=== PATIENT | male | born 1960 | race Caucasian/White ===

== ENCOUNTER → 2020-10-26 | Outpatient (CLI) | payer OTHER ==
[2020-10-26 10:26] LABS: CREATININE 0.6 mg/dL (0.7-1.3)
== END ==
LOC: CAT 09:22
PROVIDERS: ATTEND Family Medicine
DX: I70.8 Atherosclerosis of other arteries (principal); R63.4 Abnormal weight loss

== ENCOUNTER 2020-10-30 09:47 | Inpatient (IN) | payer BC, OTHER ==
[~2020-10-30] VITALS: Ht 175.3 cm; Wt 52.1 kg
--- NOTE | ~2020-10-30 | PFR/MVV ---
[facility] [place] [address] [place] [address] PULMONARY FUNCTION MVV/REPORT Name: THU HAWKINS Room #: 208-P [facility]#: [id number] Admission: 10/30/20 Attend Phys: Tai Martin MD Discharge: 11/09/20 Date of : 60 Report #: [id number] THIS REPORT FOR: //name// >> SPIROMETRY: (BTPS) Height: in cm Weight: lbs kg Exam Date: PRE-RX POST-RX PRED BEST %PRED BEST %PRED %CHG FVC LITERS . . . . . . FEV1 LITERS . . . . . . FEV1/FVC % . . . . . . HBV61-60% L/Sec . . . . . . PEF L/SEC . . . . . . FEF50/FIF50 UNITLESS . . . . . . MVV L/Min . . . f 1/Min . . . >> LUNG VOLUMES: (BTPS) PRE-RX POST-RX PRED AVG %PRED AVG %PRED %CHG VC Liters . . . . . . TLC Liters . . . . . . RV Liters . . . . . . RV/TLC % . . . . . . FRC PL Liters . . . . . . FRC N2 Liters . . . . . . ERV Liters . . . . . . IC Liters . . . . . . >> DIFFUSION: DLCO ml/Min/mmHg . . . . . . DL Zeinab ml/Min/mmHg . . . . . . DLCO/VA ml/Min/mmHg . . . . . . VA Liters . . . . . . COMMENTS: COMMENTS: >> RESISTANCE: [facility] [address] [place] [address] PULMONARY FUNCTION MVV/REPORT Name: THU HAWKINS Room #: 208-P [facility] IN ..#: [id number] Admission: 10/30/20 Attend Phys: Tai Maritn MD Discharge: 11/09/20 Date of : 60 Report #: [id number] PRE-RX PRED AVG %PRED Raw Total cmH20/L/Sec . . . Raw Insp cmH20/L/Sec . . . Raw Exp cmH20/L/Sec . . . Raw cmH20/L/Sec . . . Gaw L/Sec/cmH20 . . . sRaw cmH20 Sec . . . sGaw l/cmH20 Sec . . . Vtq Liters . . . # = OUTSIDE 95% CONFIDENCE INTERVAL CALIBRATION: PRED: 3.00 ACTUAL: EXP 3.01 INSP 3.02 [facility]-OL10- [facility]-05 N-1804-4 >> INTERPRETATION/IMPRESSION: There is no significant response to bronchodilator therapy. IMPRESSION: Spirometry is suggestive of a moderate severe obstructive airflow defect with no significant response to bronchodilator therapy. By: Tho Pradhan MD /nt
[~2020-10-30 09:47] MED LIST: NICORETTE2 MG BC; TRESIBA FL100 UNIT/1 SUBQ; TYLENOL EXTRA500 MG PO
[2020-10-30 12:01] VITALS: BP 97/45
[2020-10-30 15:31] VITALS: BP 111/64
--- NOTE | 2020-10-30 17:42 | NUR ---
PT ADMITED FROM [facility]. ADMISSION HX AND ASSESSMENT COMPLETED. PT ALERT AND ORIENTED. PRN PAIN MED GIVEN WITH PARTIAL RELIEF. NEW ORDERS NOTED. CHEST TUBE PATENT AND INTACT. NO RESPIRATORY DISTRESS NOTED.
[2020-10-30 20:00] VITALS: BP 114/58
[2020-10-30 23:35] VITALS: BP 111/43
[2020-10-31 03:08] VITALS: BP 107/46
--- NOTE | 2020-10-31 06:09 | NUR ---
ASSUMED CARE OF PT AT 1900, PT ON RA WITH RIGHT CHEST TUBE IN PLACE, HOOKED TO LIS. PT C/O PAIN 12/08 AND WAS GIVEN PAIN MEDICATION ORDERED. PT WAS INSTRUCTED ON THE US OF THE INSENTIVE SPIROMETER AND ACHIEVED 500CC X 10 BREATHES INITIALLY. PT EDUCATED ON THE IMPORTANCE OF OF I.S. USE AND DBC TO PREVENT PNEUMONIA, PT STATED UNDERSTANDING. 0330 PT INSTRUCTED TO UTILIZE THE I.S. AND TO SIT UP IN BED FOR OPTIMAL LUNG EXPANSION, PT ACHIEVED 1000 ML X 5 BREATHES. WILL CONTINUE TO ENCOURAGE PT TO USE I.S, AND PAIN MANAGEMENT PER POC.
[2020-10-31 07:37] VITALS: BP 106/62
[2020-10-31 11:12] VITALS: BP 111/48
[2020-10-31 15:09] VITALS: BP 85/54
[2020-10-31 20:00] VITALS: BP 100/60
[2020-11-01 00:51] VITALS: BP 100/57
[2020-11-01 04:00] VITALS: BP 110/63
--- NOTE | 2020-11-01 06:46 | NUR ---
ASSESSMENT DOCUMENTED.PT BEEN RESTING IN MILD DISTRESS FROM CT SITE PAIN THAT IS CONTROLLED WITH PAIN MEDS.VSS.REMAINS ON RA W/O RESP DISTRESS.CHEST TUBE TO SUCTION,STILL HAS AIRLEAK.DENIES ANY OTHER CONCERNS AT THIS TIME.
[2020-11-01 07:45] VITALS: BP 118/68
[2020-11-01 12:00] VITALS: BP 127/74
[2020-11-01 15:45] VITALS: BP 134/72
--- NOTE | 2020-11-01 16:40 | NUR ---
ASSUMED CARE SHIFT CHANGE. ASSESSMENTS CHARTED.VSS. MEDS GIVEN PER JUN. PT C/O PAIN, MANAGED WITH IV AND PO PAIN MEDS. CHEST TUBE REMAINS INTACT. CXR THIS AM--REFER TO RESULTS. CT REMAINS TO -30 SUCTION. PT HOPEFUL TO DC HOME SOON. PT CURRENTLY SITTING UP IN BED, DENIES NEEDS. CONT POC, WILL PASS ON REPORT TO JOHN PALENCIA.
[2020-11-01 20:15] VITALS: BP 111/52
[2020-11-02] VITALS (7 sets, daily range): BP systolic 109–122; BP diastolic 50–66
--- NOTE | 2020-11-02 07:39 | NUR ---
ASSUME CARE 1900. PT/VITYALS STABLE. INTERMITTENT PAIN WITH MODERTE RELIEF FROM PAIN MEDS. GOOD ENDURANCE TO ACTIVITY. CHEST TUBE TO NEGATIVE 30 SUCTION. ASSESSMENT CHARTED. PROGRESSING SLOWLY WITH POC. SR/SB ON MONITOR WITH NO DISTRESS NOTED THROUGH THE SHIFT. ADEQUATE REST NOTED. PLAN IS TO CONTINUE TO MONITOR CXR FOR IMPROVEMENT IN LUNG FUNCTION. WILL CONTINUE TO MONITOR AND FOLLOW WITH POC
--- NOTE | 2020-11-02 14:21 | NUR ---
Nutrition: Recommend consideration of GI eval due to pt comments about GERD/acid reflux, hx esophageal dilation and comments related to food getting stuck in esophagus.
--- NOTE | 2020-11-02 20:03 | NUR ---
PT CARE ASSUMED AT 0700. ASSESSMENTS CHARTED. MEDICATIONS CHARTED. RFA IV. SINUS RHYTHM. RT FLANK CHEST TUBE AT -30 MILD AIR LEAK. DIET CARB CONTROL, ACHS.
[2020-11-03] VITALS (8 sets, daily range): BP systolic 110–126; BP diastolic 55–75
--- NOTE | 2020-11-03 06:10 | NUR ---
ASSUME CARE 1900. PT/VITALS STABLE. INTERMITTENT PAIN AT CHEST TUBE INSERTION SITE. GOOD TOLERANCE TO ACTIVITY. SR/SB ON MONITOR WITH NO DISTRESS NOTED. ADEQUATE REST NOTED. ASSESSMENT CHARTED. PROGRESSING MODERATELY WITH POC. PLAN IS TO CONTINUE TO MONITOR CXR FOR IMPROVED RESP FUNCTION. WILL CONTINUE TO MONITOR AND FOLLOW WITH POC
[2020-11-03 14:59] LABS: HEMATOCRIT 40.4 % (42.0-52.0); HEMOGLOBIN 13.3 gm/dL (14.0-18.0); MCH 30.9 pg (26.0-34.0); MCV 93.8 fL (80.0-100.0); RBC 4.31 mil/uL (4.50-6.00); RDW 14.1 % (10.5-14.5); WBC 6.9 thou/uL (4.0-11.0)
[2020-11-03 15:10] LABS: CALCIUM 8.6 mg/dL (8.5-10.1); CREATININE 0.5 mg/dL (0.7-1.3); POTASSIUM 3.8 mmol/L (3.5-5.1)
--- NOTE | 2020-11-03 17:03 | NUR ---
PT CARE ASSUMED AT 0700. ASSESSMENTS CHARTED. MEDICATIONS CHARTED. RFA IV. SINUS TACHYCARDIA. URINAL. CHEST TUBE AT -20, RE-DRESSED BY Radha OLIVARES TO REPAIR A KINK IN THE TUBING. DIET: CARB CONTROL, NPO AFTER 0000. PROCEDURE TOMORROW, LOBECTOMY, BRONCHOSCOPY.
[2020-11-04] VITALS (7 sets, daily range): BP systolic 101–126; BP diastolic 45–68
--- NOTE | 2020-11-04 06:26 | NUR ---
ASSUMED CARE OF PT AT 1900. PT IS ON RA WITH RIGHT CHEST TUBE IN PLACE HOOKED TO LIS. ASSESSMENT COMPLETED NOTED, PT IS A/O X 4, C/O RIGHT SIDED PAIN R/T CHEST TUBE. PAIN MEDICATION GIVEN WITH PARTIAL RESOLUTION. PT WAS NPO AFTER MIDNOC FOR PROCEEDURE ON 11/04. REPORT GIVEN TO PRE-OP NURSE AT 0610, PT CLEANED WITH CHLORAHEXADINE WIPES.
--- NOTE | 2020-11-04 12:54 | NUR ---
Case discussed with the care team and chart reveiwed due to length of stay. The pt was admitted with a pneumo after an outpt bx of lung mass. He has had a chest tube in place and is followed by his pcp Dr. Martin and CTS. He has been up in his room with sba and was working and indep prior to admission. 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 His mother is his next of kin/emergency contact. The pt had a bronch with thoracotomy/lobectomies and lymph node dissection this morning. Likely new lung cancer dx. Outpt onc followup anticipated. Will follow along should dc need arise.
--- NOTE | 2020-11-04 15:07 | PATH ---
[facility] [address] [place] [address] PATHOLOGY RPT PROCEDURE Name: ROSSTHU ROWENA Room #: 215-P ADM IN M.R.#: [id number] Admission: 10/30/20 Date of : 60 Discharge: Report #: [id number] Path Case #: [id number] [facility] Accession Number: [id number] . 01 Material submitted: . lung - CT GUIDED RIGHT LUNG BIOPSY. Modifiers: right . 01 Clinical history: . CAT/OR/BIOPSY/LAB/CB/LUNG NODULE . 02 Diagnosis: Lung, right lung, CT-guided needle core biopsy: - MODERATE TO POORLY DIFFERENTIATED ADENOCARCINOMA, SEE COMMENT. (IUV:pit; 11/04/2020) QTP 11/04/2020 1214 Local . 02 Comment: Examination shows a fragmented needle core biopsy of lung parenchyma with occasional high-grade to pleomorphic gland forming tumor cells. Multiple properly controlled immunohistochemical stains are performed on block A1. The tumor cells show granular reactivity with napsin A, and nuclear reactivity with TTF-1. The tumor cells are nonreactive to CK20, p63 as well as p40. CK7 shows membranous reactivity present. Findings support a moderate to poorly differentiated adenocarcinoma. . Co-review: Dr. Alexa Cooley has seen member service representative slides of this case and concurs with the diagnosis. Findings of this case are communicated to Dr. Kenny Wilson in the afternoon of 11/03/2020 and again updated in the morning of 11/04/2020. (IUV:pit; 11/04/2020) . 02 Electronically signed: . Lizzette Vázquez MD, Pathologist NPI- [id number] . 01 Gross description: . Received in formalin labeled "Thu Elliott and CT-guided right lung biopsy". Received are multiple minute lung biopsy fragments range from 0.1-0.2 cm. The specimen is entirely submitted in cassette A1.([facility]; 10/30/2020) J/[facility] 10/30/2020 1630 Local . 02 Pathologist provided ICD-10: C34.91 . 02 CPT . 274534, [id number], [id number] [place] [address] PATHOLOGY RPT PROCEDURE Name: ROSSTHUFLOR GUAMAN Room #: 215-P ADM IN M.R.#: [id number] Admission: 10/30/20 Date of : 60 Discharge: Report #: [id number] Path Case #: [id number] Specimen Comment: A courtesy copy of this report has been sent to [phone] Specimen Comment: Report sent to Performed at: [address] [id number] MD Gus Whitman MD Phone: [phone] Performed at: [address] [id number] MD Lizzette Vázquez MD Phone: [phone]
--- NOTE | 2020-11-04 18:44 | NUR ---
PT S/P LOBECTOMY, THORACOTOMY. CARDENE WEANED OFF. MOVING TOWARDS GOALS. PT ON ROOM AIR. TOLORATING PAIN WITH FENTANYL GTT.
[2020-11-05 04:56] LABS: HEMATOCRIT 35.3 % (42.0-52.0); MCH 31.4 pg (26.0-34.0); MCV 92.3 fL (80.0-100.0); RBC 3.83 mil/uL (4.50-6.00); RDW 13.9 % (10.5-14.5); WBC 10.3 thou/uL (4.0-11.0)
[2020-11-05 05:06] LABS: CALCIUM 8.1 mg/dL (8.5-10.1); CREATININE 0.5 mg/dL (0.7-1.3); POTASSIUM 3.6 mmol/L (3.5-5.1)
--- NOTE | 2020-11-05 06:34 | NUR ---
Pt had uneventful night. VS have remained stable; Cardene gtt titrated to keep SBP < 150, currently at 3 mg/hr. Pain adequately controlled with Fentanyl TRUSS DRIVER HELPER, though pt needs to be reminded to use his TRUSS DRIVER HELPER button when in pain. Breathing remains non-labored, rate 17-24, sat 94-96% on room air. Left lateral chest tube remains to -20 cmH2O with sero-sanguinous drainage (60 cc this shift), still has large air leak, but no subq air. Taking clear liquids without nausea or vomitting. Left back drsg and left CT drsg remain clean, dry, and intact.
[2020-11-05 08:00] VITALS: BP 102/49
--- NOTE | 2020-11-05 08:15 | NUR ---
ASSUMMED CARE OF THIS PATIENT FROM THE NIGHT NURSE, ADARSH PALENCIA AT 0700. DR CHAVEZ ROUNDED AND SUCTION TO RT CT DECREASED TO 10 CM BY PROVIDER.
--- NOTE | 2020-11-05 11:20 | NUR ---
Discussed during los and unite rounds. Cm consult for dcp. Therapy in room working with his and assist him to recliner chair. Will cont following as needed for dc needs.
[2020-11-05 15:20] VITALS: BP 127/58
--- NOTE | 2020-11-05 15:40 | NUR ---
PATIENT TRANSFERED TO 2N ROOM 208 VIA W/C WITH INDUSTRIAL ORGANIZATION MANAGER, PIPING DESIGNER PUMP AND BELONGINGS. MOTHER, TRUPTI NOTIFIED TO NEW ROOM NUMBER. YOVANI AND ISAAC REMOVED PER ORDER. O2 SAT IN THE UPPER 90'S AND IS UP IN THE CHAIR TOLERATING WELL. REPORT CALLED TO HARRY PALENCIA.
--- NOTE | 2020-11-05 16:09 | NUR ---
RECEIVED THIS PATIENT FROM ICU.ON ROOM AIR BREATHING SPONTANEOUSLY.WITH THORACOTOMY SITE AT RIGHT LATERAL CHEST WALL COVERED WITH INTACT DRESSING.WITH RIGHT CHEST TUBE INTACT, ON SUCTION ORDERED, WITH AIR LEAK, DOCTOR IS AWARE.WITH ONGOING FENTANYL ICER MACHINE OPERATOR AND PLAIN LR.NOT IN DISTRESS. ASSESSMENT DONE.KEPT PATIENT COMFORTABLE ON BED.FALL PREVENTION MEASURES MAINTAINED.ALL NEEDS ATTENDED.
[2020-11-05 19:33] VITALS: BP 132/53
[2020-11-05 23:45] VITALS: BP 147/82
[2020-11-06 03:16] VITALS: BP 134/79
--- NOTE | 2020-11-06 04:35 | NUR ---
ASSUMED CARE OF PT AT 1900, PT IS A/O X 4 BUT UNAWARE OF HIS OWN LIMITATIONS. CHEST TUBE IS IN PLACE HOOKED TO SX AT -13TWH6S, WITH NOTABLE LEAK THAT PHYSICIAN IS AWARE OF. JAILOR PUMP IN PLACE RUNNING AT 15MCG/HR, PT RE-EDUCATED ON HOW TO USE THE PUMP. AT 2250 PT ATTEMPTED TO USE THE URINIAL AT BEDSIDE AND BECAME SOA WITH INTERCOSTAL RETRACTIONS. UPON ASSESSMENT CHEST TUBE OUTPUT HAD INCRASED TO 205 MLS. VS OBTAINED, SPO2 WAS 87 ON RA, PT PLACED ON O2 TO ACHIEVE SPO2 > 90. PT IS CURRENTLY ON 5L NC WITH SPO2 BETWEEN 93-97%. PULMONARY CONTACTED REGARDING CHANGE OF STATUS, WITH ORDERS OBTAINED AND INITIATED. WILL CONTINUE TO MONITOR PT AND WORK TOWARDS HIS POC. FALL PRECAUTIONS WITH BED ALARM INITIATED D/T PT BEING UNAWARE OF OWN LIMITATIONS.
[2020-11-06 08:00] VITALS: BP 120/56
[2020-11-06 12:00] VITALS: BP 118/57
--- NOTE | 2020-11-06 15:44 | NUR ---
Case discussed with the care team. Pt working with therapy, 5liters o2 and information systems analyst pump for postop pain control. No weekend dc anticipated. Will f/u Monday for possible home o2 /or hh referrals.
[2020-11-06 15:50] VITALS: BP 143/64
--- NOTE | 2020-11-06 17:00 | NUR ---
THIS RN AND RACHEAL ALMAGUER RN, WASTED 2.5 ML FENTANYL FROM FIELD HAULER PUMP PER DC ORDERS.
--- NOTE | 2020-11-06 17:00 | NUR ---
PATIENT'S CT DC BY GISSELLE LONDON, AND HE ALSO DID DRESSING CHANGE. PATIENT REPORTS FELLING "SO MUCH BETTER". FENTANYL TIMBER HAND DC'D PER ORDERS.
[2020-11-06 20:11] VITALS: BP 128/57
[2020-11-07 05:14] VITALS: BP 120/54
[2020-11-07 08:08] VITALS: BP 104/64
--- NOTE | 2020-11-07 09:10 | O ---
[facility] [address] OPERATIVE REPORT Name: THU HAWKINS Room #: 208-P ADM IN M.R.#: [id number] Admission: 10/30/20 Attend Phys: Tai Martin MD Discharge: Date of : 60 Report #: [id number] THIS REPORT FOR: cc: Tai Martin MD, Neal A. MD Forman, John M. MD ~ DOC #: [id number] Kenny Wilson MD PREOPERATIVE DIAGNOSIS: Lung cancer, right upper lobe. POSTOPERATIVE DIAGNOSIS: Lung cancer, right upper lobe. OPERATION: Bronchoscopy, right thoracotomy with upper and middle lobectomy and lymph node dissection. SURGEON: Kenny Wilson MD NATUROPATHIC DOCTOR: GISSELLE Anthony. ANESTHESIA: General. INDICATIONS: The patient is a 60-year-old with a solitary nodule appeared to be in the upper lobe on CT scan. Transthoracic needle biopsy led to pneumothorax and chest tube was placed. Unfortunately, the air leak did not seal and we were consulted. The biopsy appeared to be carcinoma with special stains pending. No evidence of mediastinal adenopathy by CT scan. Spirometry was satisfactory for resection and this was our recommendation. FINDINGS AND TECHNIQUE: After general anesthesia was established, flexible diagnostic bronchoscopy was performed. No endobronchial lesions were noted. A double lumen endotracheal tube was placed and its position was checked with bronchoscopic guidance. The patient was positioned with right side up. Exposure was obtained through posterolateral thoracotomy using a rib sparing and nerve sparing approach through the fifth interspace. The right lung tumor was identified. The tumor was in the upper lobe, but crossing the incomplete horizontal fissure. No obvious mediastinal adenopathy was seen and the lobectomy was begun. The truncus anterior to the upper lobe was circumdissected, stapled, and divided. [facility] [address] [place] [address] OPERATIVE REPORT Name: THU HAWKINS Room #: 208-P [facility] IN .R.#: [id number] Admission: 10/30/20 Attend Phys: Tai Martin MD Discharge: Date of : 60 Report #: [id number] The pulmonary venous drainage to the upper lobe was isolated, stapled, and divided. The bronchus was circumdissected and stapled and divided. I thought that by taking the upper portion of the middle lobe with some sort of Freestyle dissection was inadvisable and utilized the nearly complete major fissure and performed a middle lobectomy to complete the resection and completely resect the tumor. The pulmonary venous drainage to the middle lobe was stapled and divided. The bronchus was circumdissected, stapled and divided. The remaining pulmonary arterial branch to the middle lobe and the recurrent branch to the upper lobe were both stapled and divided and then the fissures were completed with several applications of staplers. The upper and middle lobe were then submitted for permanent pathology. It should be mentioned that prior to dividing any bronchus, the bronchus was tested. Pulmonary ligament was divided. Mediastinal lymph node dissection was begun at level 4, our node was submitted for pathology as well as hilar lymph nodes that were encountered in the specimen. Bronchial stumps were tested and found to be secure. A chest tube was placed through a separate stab wound and hemostasis was ascertained. The chest was then closed to maintain the rib sparing, nerve sparing approach. The patient tolerated the procedure well and was taken to the recovery area in good condition. All counts were reported as correct. Kenny Wilson MD JF/KDA <ELECTRONICALLY SIGNED> By: Kenny Wilson MD 11/07/20 0910 1508 1807 Kenny Wilson MD /nt
[2020-11-07 12:11] VITALS: BP 116/54
[2020-11-07 16:21] VITALS: BP 110/53
--- NOTE | 2020-11-07 17:01 | NUR ---
RECEIVED THE PATIENT CONSCIOUS AND ORIENTED.ON NASAL CANNULA AT 2LPM, SATURATING WELL.WITH RIGHT THORACTOMY SITE COVERED WITH INTACT DRESSING.WITH PREVIOUS CHEST TUBE SITE AT THE RIGHT LATERAL CHEST WALL COVERED WITH INTACT DRESSING.NOT IN DISTRESS.CHEST X-RAY WAS DONE IN THE MORNING, IT WAS SHOWINGLARGE RIGHT PNEUMOTHORAX WITH SLIGHT INCREASE FROM THE PREVIOUS STUDY, INFORMED DR. MICHEL ABOUT IT.INFORMED WELL OF THE CHEST X-RAY REPORT, PER DR. GONZALEZ IT IS OK.INFORMED DR. GONZALEZ WELL THAT THE PREVIOUS CHEST TUBE SITE HAS BEEN LEAKING WITH SEROSANGUIONOUS DISCHARGE. PER DR. GONZALEZ WE CAN PUT VASELINIZED GAUZE ON THE SITE ON THE NEXT DRESSING CHANGE.PREVIOUS CHEST TUBE SITE DRESSING CHANGED ASEPTICALLY.ALL NEEDS ATTENDED.
[2020-11-07 19:45] VITALS: BP 108/55
[2020-11-08 03:55] VITALS: BP 108/56
[2020-11-08 07:56] VITALS: BP 101/45
[2020-11-08 11:46] VITALS: BP 113/48
[2020-11-08 16:35] VITALS: BP 110/53
--- NOTE | 2020-11-08 17:31 | NUR ---
ASSESSMENT CHARTED - MEDS PER JUN - GIVEN HYDROCODONE 2 X 2 DOSES FOR CO'S OF PAIN IN R CHEST WITH GOOD RELIEF. THOM DIET AND FLUIDS. UP AD MICHAEL IN ROOM DRESSING TO R CHEST DRESSSED DUE TO DRESSING BEING SATURATED - REMAINS DRY AT THE PRESENT TIME - INCISION DRESSING C/D/I. NO CO'S OF NAUSEA. STATES COMFORTABLE AT THE PRESENT TIME
[2020-11-08 20:06] VITALS: BP 105/55
[2020-11-09 04:39] VITALS: BP 116/55
[2020-11-09 08:00] VITALS: BP 115/50
[2020-11-09] MEDS ORDERED: HYDROCODON-ACE1 EAC7 PO (08:13)
[2020-11-09 12:00] VITALS: BP 122/63
--- NOTE | 2020-11-09 12:39 | NUR ---
DC home today with home oxygen. Per yun wasserman to send referral to [place]. Referral sent. Will cont following as needed for dc needs.
[2020-11-09 12:40] VITALS: BP 122/63
--- NOTE | 2020-11-09 14:08 | NUR ---
PATIENT GIVEN DISCHARGE INSTRUCTIONS AND SUMMARY OF FOLLOW-UP APPOINTMENTS TO BE ATTENDED TO. HE VERABLIZED UNDERSTANDING AND HAD NO FURTHER QUESTIONS. [facility] HOME 02 SET UP, PATIENT ABLE TO GIVE TEACH BACK METHOD OF INSTRUCTIONS AFTER HE WAS TAUGHT HOW OT USE IT. BELONGINGS PACKED AND TAKEN WITH PATIENT. PATIENT'S MOTHER AT BEDSIDE TO PROVIDE TRANSPORTATION HOME.
--- NOTE | 2020-11-09 18:06 | PATH ---
[facility] [place] [address] PATHOLOGY RPT PROCEDURE Name: JOEYTHU FISCHER ROWENA Room #: 208-P [facility] IN M.R.#: [id number] Admission: 10/30/20 Date of : 60 Discharge: 11/09/20 Report #: [id number] Path Case #: [id number] [facility] Accession Number: [id number] . 01 Material submitted: . PART A: HILUM - RIGHT HILAR LYMPH NODE. Modifiers: right PART B: lung - RIGHT UPPER AND MIDDLE LUNG LOBE. Modifiers: right, upper, mid PART C: HILUM - MIDDLE LOBE HILAR LYMPH NODE. Modifiers: middle lobe PART D: lung - 4R NODE. Modifiers: 4R . 01 Clinical history: . RIGHT UPPER LOBE LUNG LESION, PNEUMOTHORAX . 02 Diagnosis: A. Lymph node (fragments), right hilar lymph node, biopsy: - Reactive anthracotic lymph node; negative for malignancy (0/1). . B. 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 - Negative for visceral pleural invasion. - Bronchial and vascular margins free of malignancy. - Background lung parenchyma showing marked congestion along with reactive changes. - Two hilar reactive anthracotic lymph nodes; negative for malignancy (0/2). . C. Lymph node (1), middle lobe hilar lymph node, biopsy: - Reactive anthracotic lymph node; negative for malignancy (0/1). . D. Lymph node (1), 4R lymph node, biopsy: - Reactive anthracotic lymph node; negative for malignancy (0/1). (IUV/db; 11/09/2020) . Surgical Pathology Cancer Case Summary . Protocol Posting Date: June 2019 . LUNG: Procedure- Right Upper and Middle Lobectomy Specimen Laterality- Right Tumor Site- Upper lobe of lung Tumor Size- 2.5 cm in greatest dimensions Tumor Focality- Single tumor Histologic Type- Invasive adenocarcinoma, 50 percent acinar and 50 percent solid type with hepatoid features Histologic Grade- G2: Moderately differentiated [address] [address] PATHOLOGY RPT PROCEDURE Name: THU HAWKINS Room #: 208-P [facility] [place] M.R.#: [id number] Admission: 10/30/20 Date of : 60 Discharge: 11/09/20 Report #: [id number] Path Case #: [id number] Spread Through Air Spaces- Not identified Visceral Pleura Invasion- Not identified Lymphovascular Invasion- Not identified Direct Invasion of Adjacent Structures- No adjacent structures present Margins- All margins are uninvolved by tumor Margins examined: Bronchial, Vascular and Visceral Pleura Distance of invasive carcinoma from closest margin (centimeters): 2.8 cm Specify closest margin: Bronchial Treatment Effect- No known presurgical therapy Regional Lymph Nodes- Number of Lymph Nodes Examined: 5 Specify ana laura station(s) examined: Hilar nodes and right 4R . . Pathologic Stage Classification (pTNM, AJCC 8th Edition) . TNM Descriptors- None . Primary Tumor (pT) pT1c: Tumor >2 cm but < or equal to 3 cm in greatest dimension . Regional Lymph Nodes (pN) pN0: No regional lymph node metastasis . Distant Metastasis (pM): pMx (unknown) [facility] 11/09/2020 1609 Local . 02 Electronically signed: . Lizzette Vázquez MD, Pathologist NPI- [id number] . 01 Gross description: . A. The specimen is received in formalin, labeled "Thu Hawkins, right hilar lymph node". Received are multiple fragments of anthracotic tissue measuring 1.0 x 0.8 x 0.3 cm in aggregate dimensions. The specimen is submitted entirely in cassette A1. . B. The specimen is received in formalin, labeled "Thu Hawkins, right upper and middle lung lobes". Received is a 340 g lobectomy specimen measuring 16.9 x 13.1 x 4.2 cm in greatest dimensions. The bronchiovascular margin of the upper lobe is stapled. The bronchiovascular margin of the middle lobe is open. The pleura is pink-landrum to cobos-brown in appearance. Sectioning reveals a well-demarcated white-landrum to pink-landrum mass measuring 2.5 x 2.2 x 2.0 cm in greatest dimensions. The mass grossly abuts the inked pleural surface (blue ink), is 2.8 cm from the upper lobe bronchial margin, and 4.2 cm from the middle lobe bronchial margin. The mass is confined to the upper [address] [address] PATHOLOGY RPT PROCEDURE Name: THU HAWKINS Room #: 208-P DIS IN M.R.#: [id number] Admission: 10/30/20 Date of : 60 Discharge: 11/09/20 Report #: [id number] Path Case #: [id number] lobe. The mass is also located 0.9 cm from a tertiary bronchus. The remainder of the specimen displays normal red-brown parenchyma. No additional nodules or lesions are noted grossly. Sectioning through the hilar aspect reveals a single lymph node measuring 1.5 cm. The specimen is submitted pharmaceutical sales representative as follows: . B1 upper lobe bronchiovascular margin B2 middle lobe bronchiovascular margin B3-B4 pharmaceutical sales representative sections of mass to show relationship with inked pleural surface B5 pharmaceutical sales representative section of mass to show relationship with tertiary bronchus B6 uninvolved parenchyma upper lobe B7 pharmaceutical sales representative section middle lobe B8 bisected hilar lymph node. . C. The specimen is received in formalin, labeled "Thu Hawkins, middle lobe hilar lymph node". Received is a segment of anthracotic tissue measuring 0.7 cm in maximum dimensions. The specimen is submitted entirely in cassette C1. . D. The specimen is received in formalin, labeled "Thu Hawkins, 4R node". Received is a segment of light brown tissue measuring 1.1 x 0.8 x 0.5 cm in greatest dimensions. The specimen is bisected and entirely submitted in cassette D1. (CAA; 11/06/2020) QAC/QAC 11/06/2020 1724 Local . 02 Pathologist provided ICD-10: C34.11 . 02 CPT . 759725, [id number] Performed at: 01 [place] [id number] MD Gus Whitman MD Phone: [phone] Performed at: [address] [id number] MD Lizzette Vázquez MD Phone: [phone]
== END 2020-11-09 14:12 | disposition home or self-care (01) | DRG 163 ==
LOC: CAT 09:47 → LAB 09:47 → CAT 11:26 → 2N 13:45 → CAT 14:29 → ICU 11-04 16:23 → 2N 11-05 15:16
PROVIDERS: Physician Assistant; ADMIT Family Medicine; ATTEND Family Medicine
PROC: 0W9930Z Drainage of Right Pleural Cavity with Drainage Device, Percutaneous Approach (ICD-10-PCS; 2020-10-30)
PROC: 0BBC3ZX Excision of Right Upper Lung Lobe, Percutaneous Approach, Diagnostic (ICD-10-PCS; 2020-10-30)
PROC: 07B70ZZ Excision of Thorax Lymphatic, Open Approach (ICD-10-PCS; principal; 2020-11-04)
PROC: 0BJ08ZZ Inspection of Tracheobronchial Tree, Via Natural or Artificial Opening Endoscopic (ICD-10-PCS; principal; 2020-11-04)
PROC: 0BBC0ZZ Excision of Right Upper Lung Lobe, Open Approach (ICD-10-PCS; principal; 2020-11-04)
PROC: 0BBD0ZZ Excision of Right Middle Lung Lobe, Open Approach (ICD-10-PCS; principal; 2020-11-04)
DX: C34.90 Malignant neoplasm of unspecified part of unspecified bronchus or lung (principal); E43 Unspecified severe protein-calorie malnutrition; G92 Toxic encephalopathy; J96.01 Acute respiratory failure with hypoxia; J95.811 Postprocedural pneumothorax; Z68.1 Body mass index [BMI] 19.9 or less, adult; Y83.8 Other surgical procedures as the cause of abnormal reaction of the patient, or of later complication, without mention of misadventure at the time of the procedure; F17.210 Nicotine dependence, cigarettes, uncomplicated; J44.9 Chronic obstructive pulmonary disease, unspecified; Y82.8 Other medical devices associated with adverse incidents; E11.9 Type 2 diabetes mellitus without complications; Y92.89 Other specified places as the place of occurrence of the external cause; Z88.8 Allergy status to other drugs, medicaments and biological substances; Z79.4 Long term (current) use of insulin; Z79.899 Other long term (current) drug therapy
CPT/HCPCS: 10078; 10081; 50010; 50101; 50386; 50403; 50455; 50739; 50740; 51301; 52191; 52301; 52303; 54118; 56524; 56525; 56526; 56527; 56528; 58585; 62110; 62900; 65020; 65105; 65129; 65135; 70005

== ENCOUNTER 2020-12-03 13:40 | Inpatient (IN) | payer BC, OTHER ==
[~2020-12-03] VITALS: Ht 182.9 cm; Wt 49.9 kg
--- NOTE | ~2020-12-03 | O ---
[facility] [place] [address] OPERATIVE REPORT Name: THU HAWKINS Room #: 219-P ADM IN M.R.#: [id number] Admission: 12/03/20 Attend Phys: Tai Martin MD Discharge: Date of : 60 Report #: [id number] THIS REPORT FOR: cc: Tai Martin MD, Neal A. MD Forman, John M. MD ~ DATE OF SERVICE: 12/04/2020 PREOPERATIVE DIAGNOSIS: Complete atelectasis, right lower lobe of lung. POSTOPERATIVE DIAGNOSIS: Complete atelectasis, right lower lobe of lung. OPERATION PERFORMED: Therapeutic flexible bronchoscopy. SURGEON: Kenny Wilson MD ANESTHESIA: General. INDICATIONS: The patient is approximately one month status post right upper and middle lobectomy. The patient was admitted yesterday with a diagnosis of a pneumothorax and a chest tube was placed. Unfortunately, the lower lobe did not reexpand and there is no significant air leak and this procedure was mandated to determine exactly why the patient has this atelectasis with the suspicion that this was related to mucus plugging. FINDINGS AND TECHNIQUE: After general anesthesia was established, flexible diagnostic bronchoscopy was performed. No endobronchial lesions were noted. The bronchial stump of the upper and middle lobes were healing nicely. The bronchus intermedius was plugged with thick inspissated secretions and multiple passes of the bronchoscope were necessary to remove secretions from all of the segmental orifices of the lower lobe. When this was completed, the patient was taken to the recovery area in satisfactory condition where a chest x-ray was taken. The patient tolerated the procedure well. By: 1447 1750 Kenny Wilson MD /nt
--- NOTE | ~2020-12-03 | O ---
[facility] [place] [address] OPERATIVE REPORT Name: THU HAWKINS Room #: 250-P ADM IN M.R.#: [id number] Admission: 12/03/20 Attend Phys: Tai Martin MD Discharge: Date of : 60 Report #: [id number] THIS REPORT FOR: cc: Tai Martin MD, Neal A. MD Forman, John M. MD ~ DATE OF SERVICE: 12/09/2020 PREOPERATIVE DIAGNOSIS: Chronic atelectasis, right lower lobe with retained secretions. POSTOPERATIVE DIAGNOSIS. Chronic atelectasis, right lower lobe with retained secretions. PROCEDURE: Flexible bronchoscopy. SURGEON: Kenny Wilson MD ANESTHESIA: IV sedation. INDICATIONS: The patient is a 60-year-old who had thoracotomy yesterday for a trapped lower lobe. The lobe was packed with secretions at the time. This has been a chronic problem since his upper and middle lobectomies approximately one month ago. The patient was left on the ventilator overnight and our plan was to perform bronchoscopy this morning to ensure that the airways were clear and that secretions had not reaccumulated. FINDINGS AND TECHNIQUE: After IV sedation was satisfactory, flexible bronchoscope was passed. The tracheobronchial tree was essentially normal with some scattered areas of inflammation. The stumps from the bronchial closure on the right upper lobe and middle lobe were healing nicely. Examination of the segmental orifices in the lower lobe showed no evidence of retained secretions and they were widely patent with a sharp air flow dividers. I looked on the left side showed the main stem bronchus and lobar and segmental bronchi were all clear. Satisfied that the airway was clear. We began efforts to wean the patient from the ventilator. [facility] [address] [place] [address] OPERATIVE REPORT Name: THU HAWKINS Room #: 250-P [facility] IN .R.#: [id number] Admission: 12/03/20 Attend Phys: Tai Martin MD Discharge: Date of : 60 Report #: [id number] The patient tolerated the procedure well. By: 1456 1603 Kenny Wilson MD /nt
--- NOTE | ~2020-12-03 | O ---
[facility] [place] [address] OPERATIVE REPORT Name: THU HAWKINS Room #: 250-P ADM IN M.R.#: [id number] Admission: 12/03/20 Attend Phys: Tai Martin MD Discharge: Date of : 60 Report #: [id number] THIS REPORT FOR: cc: Tai Martin MD, Neal A. MD Forman, John M. MD ~ DATE OF SERVICE: 12/08/2020 PREOPERATIVE DIAGNOSIS: Atelectasis due to trapped lung (right lower lobe). PREOPERATIVE DIAGNOSIS: Atelectasis due to trapped lung (right lower lobe). OPERATION: Bronchoscopy, right video-assisted thoracoscopy, right thoracotomy with decortication of lower lobe, inferior hilar release, and pleural tent formation. SURGEON: Kenny Wilson MD. SOFTWARE DESIGN MANAGER: GISSELLE Anthony. ANESTHESIA: General. INDICATIONS: The patient is 60-year-old, known to our service from right upper and middle lobectomy approximately 1 month ago. The patient had a satisfactory hospital course. The resection was done for cancer in the upper lobe that was invading middle lobe and rather than taking half of the middle lobe to encompass the cancer, the oblique fissure was exploited. The patient had done generally well, but was readmitted with concerns about a pneumothorax on the right. Chest tube was placed and no air leak was seen rather the right lower lobe was totally atelectatic and did not reexpand. The patient was taken to the operating room subsequently for bronchoscopy and the right lower lobe was packed with secretions. These were evacuated bronchoscopically, but still no improvement in lower lobe aeration was noted. Today, the patient was taken to the operating room in an attempt to reexpand the lower lobe. FINDINGS AND TECHNIQUE: After general anesthesia was established, flexible diagnostic bronchoscopy was performed. Once again, the right lower lobe was packed with secretions. Samples of these were sent for cultures. After we removed as many of the secretions as possible, a double lumen endotracheal tube was placed and efforts were made to reexpand the lower lobe pneumatically. A chest x-ray was taken and once again aeration was inadequate. [facility] [address] [place] [address] OPERATIVE REPORT Name: ROSSTHU ROWENA Room #: 250-P [facility] IN M.R.#: [id number] Admission: 12/03/20 Attend Phys: Tai Martin MD Discharge: Date of : 60 Report #: [id number] Bronchoscopy was again performed to remove any residual secretions, but once again chest x-ray showed no significant improvement. The patient was then positioned with right side up. Exposure was obtained through video-assisted thoracoscopy and at this time, we saw that the lower lobe was atelectatic and covered with a fibrous envelope that was preventing its reexpansion. It was clear that video-assisted approach would be inadequate to remove this. Chest was entered through the previous posterolateral thoracotomy. The lower lobe was completely decorticated of its investing fibrous envelope. When this was complete, the pericardium was opened and then inferior hilar release was performed to allow the lung to elevate a bit. Of course, this patient has severe chronic obstructive pulmonary disease and the lobe was not sufficient to completely fill the chest. Attempt was made to perform a pleural tent to collapse the parietal pleura around the lung. After all of this was done, hemostasis was ascertained in all areas. Chest was irrigated with copious amounts of saline. A chest tube was placed through a separate stab wound and then the chest was closed in layers. Marcaine was instilled into the intercostal spaces. The patient tolerated the procedure well and was taken to the recovery area in good condition. All counts were reported as correct. The patient was left on the ventilator to help maintain the improvement in ventilation. Chest x-ray showed that the lower lobe was now much better aerated. By: 1407 1526 Kenny Wilson MD /praveen
[~2020-12-03 13:40] MED LIST changes: +HYDROCODON-ACE1 EAC7 PO
[2020-12-03 14:47] VITALS: BP 145/58
[2020-12-03 17:51] VITALS: BP 126/72
--- NOTE | 2020-12-03 20:05 | NUR ---
PATIENT ADMITTED TO CCU POST CHEST TUBE PLACEMENT FOR RIGHT SIDED PNEUMOTHORAX. PATIENT SENT OVER FROM DR. MHAMOOD OFFICE. SURGERY DONE BY DR. CHAVEZ. PATIENT PLACED ON TELEMONITOR UPON ARRIVAL TO UNIT. VSS. RIGHT CHEST TUBE ATRIUM TO WATERSEAL PER ORDERS. PATIENT SALINE LOCKED AND TOLERATING DIET. REPORTS 10/10 PAIN. PO HYDROCODONE GIVEN PER EMAR. ADMISSION ASSESSMENTS COMPLETE. CONSENTS SIGNED IN PREOP. REPORT GIVEN TO JOHN PALENCIA.
[2020-12-03 20:34] VITALS: BP 123/72
[2020-12-03 23:30] VITALS: BP 125/71
[2020-12-04 03:49] LABS: HEMATOCRIT 33.3 % (42.0-52.0); HEMOGLOBIN 11.1 gm/dL (14.0-18.0); MCH 30.7 pg (26.0-34.0); MCHC 33.2 g/dL (28.0-37.0); MCV 92.6 fL (80.0-100.0); RBC 3.6 mil/uL (4.50-6.00); RDW 13.9 % (10.5-14.5); WBC 8.6 thou/uL (4.0-11.0)
[2020-12-04 04:00] LABS: CALCIUM 7.8 mg/dL (8.5-10.1); CREATININE 0.6 mg/dL (0.7-1.3); POTASSIUM 3.2 mmol/L (3.5-5.1)
[2020-12-04 04:35] VITALS: BP 93/63
[2020-12-04 08:00] VITALS: BP 94/64
[2020-12-04 12:00] VITALS: BP 93/49; BP 99/55
--- NOTE | 2020-12-04 14:02 | NUR ---
Nutrition: REC order daily MVI and consider appetite stimulant. Pt with severe malnutrition and may require consideration of supplemental nutrition support to improve nutritional status. PEG?
--- NOTE | 2020-12-04 15:18 | O ---
[facility] [place] [address] OPERATIVE REPORT Name: THU HAWKINS Room #: 219-P ADM IN M.R.#: [id number] Admission: 12/03/20 Attend Phys: Tai Martin MD Discharge: Date of : 60 Report #: [id number] THIS REPORT FOR: cc: Tai Martin MD, Neal A. MD Forman,Kenny Seo MD ~ DATE OF SERVICE: 12/03/2020 PREOPERATIVE DIAGNOSIS: Pneumothorax, right side. POSTOPERATIVE DIAGNOSIS: Pneumothorax, right side. OPERATION: Emergency right chest tube placement. SURGEON: Kenny Wilson MD ANESTHESIA: General. INDICATION: The patient is a 60-year-old with previous upper and middle lobectomy related to cancer. The patient had a satisfactory hospital course and had done well as an outpatient. Today, the patient was sent by his officer lieutenant who found a complete right-sided pneumothorax after chest x-ray was taken for shortness of breath. The patient was admitted and brought to the operating room for chest tube placement to treat this. FINDINGS AND TECHNIQUE: After general anesthesia was established, an incision was made in the anterolateral right chest. Digital exploration revealed there was no evidence of adhesions. A 28-Namibian chest tube was placed and secured in position. Chest tube was placed to balance suction because of history of having problems when the chest tube had been placed to suction and mediastinal shift had ensued. When the tube was in good position, chest x-ray was taken. The patient tolerated the procedure well and was taken to the recovery area in good condition. <ELECTRONICALLY SIGNED> By: Kenny Wilson MD 12/04/20 1518 1602 1739 Kenny Wilson MD /nt
--- NOTE | 2020-12-04 16:51 | NUR ---
ASSUMED CARE SHIFT CHANGE. VSS BP RUNS LOW- NORM FOR PT. O2 SATS WNL 2L. C/O PAIN IN CHEST TUBE INCISION SITE MANAGED WITH PO AND IV PAIN MEDS. BRONCH DONE THIS SHIFT, PT THOM WELL. RETURNED TO UNIT DROWSY BUT VERY AROUSABLE. ENCOURAGED TO COUGH/DEEP BREATHE/ PRACTICE IS DEVICE. PT CURRENTLY SLEEPING IN BED. CONT POC. WILL PASS REPORT TO JOHN PALENCIA.
[2020-12-04 17:00] VITALS: BP 137/53; BP 93/49
[2020-12-04 20:13] VITALS: BP 94/53
--- NOTE | 2020-12-05 03:42 | NUR ---
ASSUMED PT CARE AT 1900, ALERT AND ORIENTED, ST/SR ON TELE, PAIN TO THE CHEST TUBE INSERTION SITE, FENTANYL GIVEN WITH NO RELIEVE, LICENSE AND PERMIT SPECIALIST NOTIFIED, ORDER FOR ONETIME TORADOL OBTAINED AND IMPLEMENTED, PT SLEEPING DURING REASSESSMENT, ASSESSMENTS CHARTED, OTHER MEDS GIVEN PER JUN, CHEST TUBE IN PLACE, WILL CONTINUE TO FOLLOW POC
[2020-12-05 04:02] LABS: CALCIUM 7.7 mg/dL (8.5-10.1); CREATININE 0.5 mg/dL (0.7-1.3); POTASSIUM 3.3 mmol/L (3.5-5.1)
[2020-12-05 04:47] LABS: HEMATOCRIT 32.5 % (42.0-52.0); HEMOGLOBIN 10.9 gm/dL (14.0-18.0); MCH 30.8 pg (26.0-34.0); MCHC 33.5 g/dL (28.0-37.0); MCV 92.1 fL (80.0-100.0); RBC 3.53 mil/uL (4.50-6.00); RDW 13.7 % (10.5-14.5); WBC 7.4 thou/uL (4.0-11.0)
[2020-12-05 05:03] VITALS: BP 95/61
[2020-12-05 07:24] LABS: MAGNESIUM 1.6 mg/dL (1.8-2.4)
[2020-12-05 09:39] VITALS: BP 100/51
[2020-12-05 09:46] VITALS: BP 102/62
[2020-12-05 20:00] VITALS: BP 115/72
--- NOTE | 2020-12-05 23:34 | NUR ---
PT ASLEEP AT CHANGE OF SHIFT, EASILY AROUSED. O2 AND CHEST TUBE INTACT. PT DECLINED HS SNACK. PRN PROVIDED FOR PAIN. BED ALARM ON.
[2020-12-06 04:22] VITALS: BP 94/60
[2020-12-06 07:55] VITALS: BP 106/61
[2020-12-06 11:08] VITALS: BP 132/67
--- NOTE | 2020-12-06 13:34 | NUR ---
FENTANYL FOOD CLERK INITIATED AT 1139 WITH TALHA MUNOZ FOR ASSIST. I INSTRUCTED PATIENT ON USAGE AND INDICATIONS. HE VERBALIZED UNDERSTANDING.
[2020-12-06 15:54] VITALS: BP 108/49
[2020-12-06 20:35] VITALS: BP 107/71
[2020-12-07 00:06] VITALS: BP 98/57
[2020-12-07 04:06] LABS: GLYCOHEMOGLOBIN (HGB A1C) 9.3 % (4.8-5.6)
[2020-12-07 04:25] VITALS: BP 100/50
[2020-12-07 07:00] VITALS: BP 101/63
[2020-12-07 11:45] VITALS: BP 89/63
[2020-12-07 17:00] VITALS: BP 98/52
--- NOTE | 2020-12-07 17:21 | NUR ---
met with patient he admits with pnemothorax. Recent diagnosis of lung cancer. Patient resides in independent home alone. He recently dc from [facility] 11/09 to moms home in [facility]. He rec new oxygen via [employer]. Patient reports he needed it for approx a week and now requests it be picked up from mothers home. Discussed with patient dc planning. he does not feel he needs [facility]. Plans home independently. he is semiretured from work at this time. He reports in his home he has steps but all his needs on one level. tenative plan for home independently casemgt following
[2020-12-07 20:33] VITALS: BP 101/64
[2020-12-08 04:43] VITALS: BP 103/62
--- NOTE | 2020-12-08 08:09 | NUR ---
NPO SINCE MIDNIGHT FOR A PROCEDURE/SURGERY TODAY.REPORT GIVEN TO PRE OP NURSE.CONSENT SIGNED.PT STATES I DON'T HAVE TO CALL HIS MOM.BLOOD GLUCOSE DONE AND MUPIROCIN APPLIED TO BILATERAL NARES.PT WAS PICKED UP BY PRE OP RN.PT STABLE.MONITOR SHOWS SR.POC CONTINUED.
--- NOTE | 2020-12-08 11:32 | NUR ---
PATIENT GOING STRAIGHT TO ICU ROOM 250 FROM PACU. REPORT CALLED TO TALHA SCHUMACHER IN ICU. NO QUESTIONS AT TIME OF REPORT. PATIENT BELONGINGS WILL BE PACKED UP AND TAKEN OVER TO ICU.
--- NOTE | 2020-12-08 12:49 | NUR ---
RT went to see patient for a post vent ABG. Patient blood pressure was 78/60 RT stuck patient twice with needle unable to get post ABG. Patient on 150mg of propofol.
[2020-12-08 15:00] VITALS: BP 91/58
--- NOTE | 2020-12-08 15:54 | NUR ---
After procedure today, he was transferred to icu, bronch with vat. Unable to visit with richard. On vent. Will cont following as needed for dc needs.
[2020-12-08 16:00] VITALS: BP 91/56
[2020-12-08 16:36] LABS: BE(vivo) 3.9 mmol/L (-2 to +3); HCO3 28.4 mmol/L (22.0-26.0); PCO2 42.3 mmHg (35.0-45.0); PO2 422.2 mmHg (80.0-100.0); pH 7.445 (7.360-7.450); sO2 99.8 % (92.0-98.0)
[2020-12-08 17:00] VITALS: BP 91/53
[2020-12-08 18:00] VITALS: BP 81/43
[2020-12-08 19:00] VITALS: BP 97/47
--- NOTE | 2020-12-08 20:09 | NUR ---
PT ARRIVED FROM RECOVERY AT AROUND 1420 ACCOMPANIED BY PICK UP SUHAS. PT'S HEART RATE AT 170 AND PT HYPOTENSIVE. 5 MG DILTIAZEM WAS GIVEN TO PATIENT PER DR. CHAVEZ ORDER. CARDIZEM GTT WAS STARTED. PT WAS STARTED ON PRECEDEX GTT. FENTANYL SILVERWARE WASHER WAS STARTED. CONTINUE TO MONITOR. AT 1800, PT URINE OUTPUT LESS THAN 30 ML FOR THE PAST FEW HOURS. BLOOD GLUCOSE >190 X2. BLOOD PRESSURE IS IN THE LOW SIDE. ONE OF ALBUMIN WAS GIVEN AND IVF INCREASED TO 100ML/HR.
[2020-12-09] VITALS (9 sets, daily range): BP systolic 98–129; BP diastolic 52–66
[2020-12-09 04:11] LABS: BE(vivo) 5.2 mmol/L (-2 to +3); HCO3 29.5 mmol/L (22.0-26.0); PCO2 42.5 mmHg (35.0-45.0); PO2 143.7 mmHg (80.0-100.0); sO2 98.9 % (92.0-98.0)
[2020-12-09 04:47] LABS: HEMATOCRIT 28.1 % (42.0-52.0); HEMOGLOBIN 9.3 gm/dL (14.0-18.0); MCH 30.7 pg (26.0-34.0); MCHC 33.2 g/dL (28.0-37.0); MCV 92.4 fL (80.0-100.0); RBC 3.04 mil/uL (4.50-6.00); RDW 13.6 % (10.5-14.5); WBC 11.8 thou/uL (4.0-11.0)
[2020-12-09 05:41] LABS: CALCIUM 7.9 mg/dL (8.5-10.1); CREATININE 0.4 mg/dL (0.7-1.3); POTASSIUM 3.6 mmol/L (3.5-5.1)
--- NOTE | 2020-12-09 06:00 | NUR ---
PLEASE SEE VS GRAPHIC PRINTED in CHART
--- NOTE | 2020-12-09 06:00 | NUR ---
PT IS AWAKE AND ALERT. C/O RIGHT CT SITE PAIN FENTANYL BUILDING TECH REMAINS INTUBATED AND LIGHTLY SEDATED WITH PRECEDEX AT .02 MCG EDGAR THAKKAR. RIGHT CHEST TUBE IN PLACE WITH 210 CC DRG THIS SHIFT. [address] CHAVEZ WILL BRONCH PT THIS AM . PROGRESSING TOWARD GOALS
[2020-12-09 10:22] LABS: BE(vivo) 4.6 mmol/L (-2 to +3); HCO3 29.6 mmol/L (22.0-26.0); PCO2 46.3 mmHg (35.0-45.0); pH 7.424 (7.360-7.450); sO2 98.5 % (92.0-98.0)
--- NOTE | 2020-12-09 17:59 | NUR ---
PT EXTUBATED AT 1035 AM . PRECEDEX OFF AN HOUR BEFORE EXTUBATION. PT HAS FENTANYL FLOUR MIXER HELPER FOR PAIN. LEFT RADIAL ARTERIAL LINE OUT AT 1400. GRAY OUT AT 1600. PT UPTO TO CHAIR. PT DIDNT LIKE SITTING UP IN CHAIR. CONTINUE TO MONITOR.
--- NOTE | 2020-12-09 20:41 | NUR ---
This RN spoke to Dr. Martin regarding patients unamanged pain and nausea. Discussed patient status. New orders received. Will continue to monitor.
[2020-12-10] VITALS (11 sets, daily range): BP systolic 99–116; BP diastolic 57–68
--- NOTE | 2020-12-10 08:08 | PATH ---
[facility] [address] [place] [address] PATHOLOGY RPT PROCEDURE Name: JOEYAMADOTHU ROWENA Room #: 250-P ADM IN M.R.#: [id number] Admission: 12/03/20 Date of : 60 Discharge: Report #: [id number] Path Case #: [id number] [facility] Accession Number: [id number] . 01 Material submitted: . pleura - RIGHT PLEURAL PEEL. Modifiers: right . 01 Clinical history: . BRONCHOSCOPY VIDEO ASSISTED THOROSCOPY (+++) THORACOTOMY (+++) DECORTICATION OF LUNG (+++) ATELECTASIS RIGHT LUNG CHEST TUBE INSERTION . 02 Diagnosis: Right pleural peel, decortication: - Pleural tissue with moderate acute and chronic inflammation as well as fibrinoid degeneration. . (IUV:mml; 12/09/2020) QLM 12/09/2020 1552 Local . 02 Electronically signed: . Lizzette Vázquez MD, Pathologist NPI- [id number] . 01 Gross description: . The specimen is received in formalin, labeled "Thu Hawkins, right pleural peel". Received are multiple segments of pink-landrum pleura admixed with a large amount of exudate measuring 11.5 x 8.3 x 2.9 cm in aggregate dimensions. The specimen is submitted representatively in cassette A1. (CAA; 12/08/2020) QA/QA 12/09/2020 1550 Local . 02 Pathologist provided ICD-10: R09.1 . 02 CPT . 926554 Specimen Comment: A courtesy copy of this report has been sent to [phone], [phone] Specimen Comment: [phone] Specimen Comment: Report sent to / DR MICHEL Performed at: [id number] [facility] [address], [place], [place] [id number] [address] [address] [place] [address] PATHOLOGY RPT PROCEDURE Name: THU HAWKINS Room #: 250-P [facility] IN M.R.#: [id number] Admission: 12/03/20 Date of : 60 Discharge: Report #: [id number] Path Case #: [id number] MD Gus Whitman MD Phone: [phone] Performed at: [address] [address] [place], [place] [id number] MD Lizzette Vázquez MD Phone: [phone]
--- NOTE | 2020-12-10 18:19 | NUR ---
remains up in chair, repositioning self back and forth in chair. pt informed by RN, GISSELLE Nettles and Dr. Wilson on importance and technique reminders on how to most effectively take deep breaths and cough and/or use of incentive spirometer. deep breathing technique improved by taking in breaths more slowly and effectively. pt states he feels "a pop or pinging feeling as he points to his lower chest" that occur shortly after performing deep breathing or incentive spirometer. pulls 500-600cc, nonproductive cough. poor appetite, eating all he wants to at this time. st-119, using highway inspector morphine for pain relief, states pain 8/10, watching tv, calm, no distress, resp even and unlabored, lungs basically diminished throughout with coarseness in L lower lobe, voiding adequate sofia urine. slowly progressing.
--- NOTE | 2020-12-10 20:43 | NUR ---
Upon 1999 assessment, patient is increasingly confused. Clear dictation, but patient is not making sense. While trying to pass medications, patient demanded that only his doctor could give him his medications and insisted RN was trying to poison him. Verbally abusive and patient tried to disconnect IV and called this RN "a f*aspen b*tcjj". Managed to get patient to take Lopressor but unsuccesful with rest of medications. Will continue to reorient and monitor.
[2020-12-10 22:50] LABS: CALCIUM 8.2 mg/dL (8.5-10.1); CREATININE 0.5 mg/dL (0.7-1.3); POTASSIUM 3.8 mmol/L (3.5-5.1)
--- NOTE | 2020-12-10 23:41 | NUR ---
This RN spoke to Dr Artis a 2199 regarding altered mental status. Discussed patient labs and medications. Told to refer to Dr. Martin. Orders received from Dr. Martin. Tho Walters to bedside to assess patient as well. Orders received. Patient nonredirectable and will only let Tho give him care at this time.
--- NOTE | 2020-12-10 23:46 | NUR ---
Patient getting out of bed and pulling at medical equipment so frequently RN can not take care of other patients. Patient verbally abusive. Patient unable to understand. Discussed with Dr. Martin. Orders to restrain patient in bilateral soft wrist restraints. Will continue to monitor.
[2020-12-11] VITALS (28 sets, daily range): BP systolic 74–119; BP diastolic 44–70
[2020-12-11 08:57] LABS: CALCIUM 7.8 mg/dL (8.5-10.1); CREATININE 0.5 mg/dL (0.7-1.3); POTASSIUM 3.3 mmol/L (3.5-5.1)
--- NOTE | 2020-12-11 09:00 | NUR ---
ASSUMMED CARE OF THIS PATIENT AT 0700 FROM THE NIGHT NURSE. MONITOR SHOWING ST WITH A HEART RATE UP TO [address] MICHEL ROUNDED AND AWARE, ORDERS RECEIVED. EKG DONE. PATIENT NOTED TO BE MORE COOPERATIVE. MOTHER AT BEDSIDE. INCONTIENT OF STOOL LINENS CHANGED. WILL CONTINUE TO MONITOR.
--- NOTE | 2020-12-11 12:00 | NUR ---
PATIENT TO XRAY AND BACK VIA W/C WITH ICU TECH. ALERT AND COOPERATIVE. ABLE TO PARTICIPATE IN HIS CARE AND FOLLOW DIRECTIONS APPROPIATLY. CONTINUES TO C/O OF INCISIONAL PAIN. TYLENOL GIVE IVPB PRIOR TO JOURNEY TO XRAY. UP TO CHAIR FOR MEAL.
--- NOTE | 2020-12-11 13:53 | EKG ---
[address] [place] [address] ELECTROCARDIOGRAM REPORT Name: THU HAWKINS Room #: 250-P ADM IN M.R.#: [id number] Admission: 12/03/20 Attend Phys: Tai Martin MD Discharge: Date of : 60 Report #: [id number] [facility] Test Date: 2020-12-11 Test Time: 07:54:31 Pat Name: THU HAWKINS Department: Room: 250 P Gender: M Cover Remover: ROSA : 1960 Requested By: Tai Martin Order Number: [id number] MD: Rommel Calvert Measurements Intervals Gruver Rate: 118 P: 61 AL: 141 QRS: 58 QRSD: 76 T: QT: 312 QTc: 438 Interpretive Statements Sinus tachycardia Ventricular premature complex Low voltage, precordial leads Borderline repolarization abnormality Baseline wander in lead(s) V6 No previous ECG available for comparison Electronically Signed On 12-11-2020 13:53:12 CDT by Rommel Calevrt [email or web address] <ELECTRONICALLY SIGNED> By: Rommel Calvert MD 12/11/20 1353 0754 0754 Rommel Calvert MD /LEONARDO
--- NOTE | 2020-12-11 14:06 | NUR ---
REMAINS ANXIOUS AND LETHAGIC. NS BOLUS INFUSING. BEDSIDE ECHO COMPLETED
--- NOTE | 2020-12-11 14:46 | 2DMMODE ---
[facility] [place] [address] 2 D/M-MODE ECHOCARDIOGRAM Name: THU HAWKINS Room #: 250-P ADM IN M.R.#: [id number] Admission: 12/03/20 Attend Phys: Tai Martin MD Discharge: Date of : 60 Report #: [id number] THIS REPORT FOR: cc: Tai Martin MD, Neal A. MD Park, Jin S. MD ~ APPROVED REPORT Study performed: 12/11/2020 13:27:55 EXAM: Comprehensive 2D, Doppler, and color-flow Echocardiogram Patient Location: ICU Room #: 250 Status: routine BSA: 1.69 HR: 113 bpm BP: 87/53 mmHg Rhythm: Tachycardia Other Information Study Quality: Technically Difficult Technically limited study due to body habitus, inability to position patient. Indications Diabetes Tachycardia 2D Dimensions IVC: 15.00 mm Aortic Valve AoV Peak Rakesh.: 1.50 m/s AO Peak Gr.: 8.98 mmHg LVOT Max P.29 mmHg LVOT Max V: 1.04 m/s Tricuspid Valve TR Peak Rakesh.: 2.59 m/s TR Peak Gr.: 26.75 mmHg PA Pressure: 32.00 mmHg Left Ventricle The left ventricle is normal size. There is normal LV segmental wall motion. There is normal left ventricular wall thickness. The left [facility] [address] [place] [address] 2 D/M-MODE ECHOCARDIOGRAM Name: THU HAWKINS Room #: 250-P ADM IN M.R.#: [id number] Admission: 12/03/20 Attend Phys: Tai Martin, Discharge: Date of : 60 Report #: [id number] ventricular systolic function is normal. LVEF is 65%. Grade I - abnormal relaxation pattern. Right Ventricle The right ventricle is normal size. The right ventricular systolic function is normal. Atria The left atrium size is normal. The right atrium size is normal. Aortic Valve The aortic valve is normal in structure. Trace aortic regurgitation. There is no aortic valvular stenosis. Mitral Valve The mitral valve is normal in structure. There is no mitral valve regurgitation noted. No evidence of mitral valve stenosis. Tricuspid Valve The tricuspid valve is normal in structure. There is trace tricuspid regurgitation. Estimated PAP 30 mmHg. Pulmonic Valve The pulmonary valve is normal in structure. There is no pulmonic valvular regurgitation. Great Vessels The aortic root is normal in size. IVC is normal in size and collapses >50% with inspiration. Pericardium There is no pericardial effusion. <Conclusion> The left ventricle is normal size. There is normal left ventricular wall thickness. The left ventricular systolic function is normal. Grade I - abnormal relaxation pattern. The right ventricle is normal size. The left atrium size is normal. Trace aortic regurgitation. [facility] [address] [facility] [place] [address] 2 D/M-MODE ECHOCARDIOGRAM Name: THU HAWKINS Room #: 250-P ADM IN M.R.#: [id number] Admission: 12/03/20 Attend Phys: Tai Martin, Discharge: Date of : 60 Report #: [id number] There is no mitral valve regurgitation noted. There is trace tricuspid regurgitation. <ELECTRONICALLY SIGNED> By: Rommel Calvert MD 12/11/206 45 45 Rommel Calvert MD /INF
[2020-12-11 15:44] LABS: BE(vivo) 6.7 mmol/L (-2 to +3); HCO3 30.3 mmol/L (22.0-26.0); PCO2 39.4 mmHg (35.0-45.0); PO2 61.2 mmHg (80.0-100.0); pH 7.504 (7.360-7.450); sO2 93.4 % (92.0-98.0)
--- NOTE | 2020-12-11 15:46 | NUR ---
Discussed during am rounds and los. Cm cont to wear face mask and shield during visit. Cm spoke with richard mom at bedside and cm held richard hand so he would hold still for lab drawl. soft spoken and diff forming words. No anticipated dc over the weekend. Possible able to move out of icu to ccu when bed opens ups.
--- NOTE | 2020-12-11 17:30 | NUR ---
NS BOLUS GIVEN. DR MICHEL NOTIFIED OF PATIENT'S CONDITION. ORDERS RECEIVED. PATIENT'S MOTHER AT BEDSIDE AND STATED THAT SHE CANNOT CARE FOR HIM AT HOME LIKE THIS. REASSURANCE GIVEN TO HER AND STATED THAT WE COULD NOT SEND HIM HOME IN THIS CONDITION. PATIENT SLEEPING AT THE PRESENT TIME.
--- NOTE | 2020-12-11 20:35 | NUR ---
PATIENT IS NOT PROGRESSING TOWARDS OUTCOME GOAL BEHAVIORLY HE REMAINS CONFUSED AND TRYING TO GET OUT OF BED AND NOT USING THE CALL LIGHT INSTRUCTED SEVERAL TIMES THROUGHOUT THE DAY. INCONTIENT OF URINE AND STOOL, LINENS CHANGED.
[2020-12-12] VITALS (13 sets, daily range): BP systolic 87–124; BP diastolic 49–65
--- NOTE | 2020-12-12 08:00 | NUR ---
Assessment completed see [facility]. Pt had bfkt and is much clearer this morning.
[2020-12-12] MEDS ORDERED: ATENOLOL 50MG T50 M1 PO (08:44)
[2020-12-12] MEDS ORDERED: LORAZEPAM 0.50.5 MG PO (08:45)
[2020-12-12] MEDS ORDERED: HYDROCODON-ACE1 EAC7 PO (08:45)
--- NOTE | 2020-12-12 09:00 | NUR ---
Dr Calvert here to see orders to dc the atenolol and not send it home with the patient. Spoke with the patient and his mother.
--- NOTE | 2020-12-12 09:30 | NUR ---
Dr Martin here to see, spoke with the mother and patient about going home. Both in agreement. Verbal instructions given by Dr Martin.
--- NOTE | 2020-12-12 12:15 | NUR ---
Pt discharged per wheelchair acc by nursing personnel. Mother at his side.
== END 2020-12-12 15:41 | disposition home or self-care (01) | DRG 163 ==
LOC: OR 13:40 → 2N 16:15 → OR 17:03 → 2N 17:03 → ICU 12-08 11:38
PROVIDERS: Hospitalist; Physician Assistant; ADMIT Family Medicine; ATTEND Family Medicine
PROC: 0W9930Z Drainage of Right Pleural Cavity with Drainage Device, Percutaneous Approach (ICD-10-PCS; principal; 2020-12-03)
PROC: 0BJ08ZZ Inspection of Tracheobronchial Tree, Via Natural or Artificial Opening Endoscopic (ICD-10-PCS; 2020-12-04)
PROC: 0BNF4ZZ Release Right Lower Lung Lobe, Percutaneous Endoscopic Approach (ICD-10-PCS; 2020-12-08)
PROC: 0BJ08ZZ Inspection of Tracheobronchial Tree, Via Natural or Artificial Opening Endoscopic (ICD-10-PCS; 2020-12-09)
DX: J93.9 Pneumothorax, unspecified (principal); E43 Unspecified severe protein-calorie malnutrition; J96.01 Acute respiratory failure with hypoxia; C34.90 Malignant neoplasm of unspecified part of unspecified bronchus or lung; J98.11 Atelectasis; E11.9 Type 2 diabetes mellitus without complications; E87.6 Hypokalemia; D64.9 Anemia, unspecified; Z20.822 Contact with and (suspected) exposure to COVID-19; Z68.1 Body mass index [BMI] 19.9 or less, adult; Z87.891 Personal history of nicotine dependence; Z88.6 Allergy status to analgesic agent
CPT/HCPCS: 10078; 10081; 50010; 50101; 50386; 50403; 50455; 50607; 50649; 51301; 52265; 54118; 56524; 56525; 56526; 56527; 56528; 58585; 62110; 62900; 65020; 65105; 70005

== ENCOUNTER 2020-12-21 17:08 | Inpatient (IN) | payer BC, OTHER ==
[~2020-12-21] VITALS: Ht 182.9 cm; Wt 43.1 kg
--- NOTE | ~2020-12-21 | EMS ---
[address] [address] EMS Patient Care Report Name: THU HAWKINS Room #: REG NALLELY Mason#: [id number] Admission: 12/21/20 Attend Phys: Discharge: Date of : 60 Report #: [id number] THIS REPORT FOR: //name// Report Transmitted: 12/21/2020 18:18 EMS Care Summary [facility] Incident 22540 @ 12/21/2020 16:03 Incident Location [address] [place] [address] Patient THU HAWKINS Male, 60 Years 1960 Patient Address [address] [place] [address] Patient History Malignant neoplasm of unspecified part of unspecified bronchus or lung,Pneumothorax, unspecified,Endocrine Condition - Other, Patient Allergies No known allergies, Patient Medications insulin, isophane, Chief Complaint Shortness of Breath Disposition Transported No Lights/[place] Dispatch Reason Sick Person Transported To [facility] Narrative FROM POST 8, [facility] DISPATCHED NON-EMERGENT TO ABOVE ADDRESS FOR A 60 YEAR OLD MALE COMPLAINING OF WEAKNESS. 319 ARRIVES ON SCENE WITHOUT INCIDENT. UPON ARRIVAL, PT FOUND LYING RIGHT LATERAL RECUMBENT ON LIVING ROOM FLOOR IN CARE OF [address] [address] EMS Patient Care Report Name: THU HAWKINS Room #: REG NALLELY Mason#: [id number] Admission: 12/21/20 Attend Phys: Discharge: Date of : 60 Report #: [id number] IFD. PT'S MOTHER IS STANDING BY IN RESIDENCE WELL. PT COMPLAINS "I AM HAVING A TOUGH TIME BREATHING." SHORTNESS OF BREATH CAME ON APPROXIMATELY TWO DAYS AGO, GRADUALLY WORSENING TO POINT HE RATES CURRENT RESPIRATORY DISTRESS AT 8/10. HE HAS HAD AN INTERMITTENT COUGH THAT PRODUCES FROTHY WHITE SPUTUM. PT STATES HIS MOTHER CAME OVER TO HIS HOME TODAY, AND WHEN SHE NOTICED HIS CONDITION SHE CALLED 911. HE STATES HAVING CONTINUOUS DIARRHEA, WEAKNESS, AND NO APPETITE DURING THIS TIMEFRAME. PT DENIES COMPLIANCE WITH medications FOR AN ESTIMATED WEEK. PT'S MOTHER ADDS THAT PT HAS HISTORY OF LUNG CANCER. IN MID OCTOBER, PT HAD PART OF RIGHT LUNG REMOVED. APPROXIMATELY TWO WEEKS FOLLOWING LOBECTOMY, PT WENT BACK TO HOSPITAL THIS SAME LUNG HAD COLLAPSED FOLLOWING SURGERY. PT DENIES FALL OR OTHER RECENT TRAUMA, STATING HE LAID DOWN ON FLOOR JUST PRIOR TO IFD ARRIVAL ON SCENE. PT DENIES ASSOCIATED LIGHTHEADED/DIZZINESS, nausea, VOMITING, FEVER, STERNAL/LEFT CHEST PAIN, OR OTHER COMPLAINT. IFD REPORTS ASSESSMENTS AND INTERVENTIONS PRIOR TO [facility] ARRIVAL. PT APPEARS GENERALLY FRAIL AND MALNOURISHED. AIRWAY PATENT/CLEAR, BREATHING SHALLOW/NON-LABORED/FACIAL GRIMACE WITH DEEP INHALE. SKIN APPEARS INTACT/PALE/DRY/POOR TURGOR. ASSESSMENTS AND TREATMENTS NOTED BELOW; PULSE OXIMETRY ON [facility] ARRIVAL 96% ON OXYGEN 2 LPM NASAL CANNULA. LUNG SOUNDS DIMINISHED IN LOWER IGLESIAS. PT IS FULLY ORIENTED, SPEAKS IN SHORT SENTENCES, AND STATES HIS BREATHING FEELS "A LITTLE BETTER" AFTER OXYGEN THERAPY. KIRSTEN WELDING MACHINE OPERATOR THERMIT BROUGHT TO PT SIDE AND POSITIONED UNDER HIM. KIRSTEN WELDING MACHINE OPERATOR THERMIT USED TO TRANSFER PT OUTSIDE TO WAITING COT, WHERE HE IS POSITIONED ON COT IN POSITION OF COMFORT WITH ALL SEATBELTS APPLIED. COT TAKEN TO AMBULANCE WHERE IT IS SECURED WITHOUT INCIDENT. RAILWAYS ASSISTANT ATTACHED, ONGOING ASSESSMENT SHOWS NO CHANGE IN PT COMPLAINT OR CONDITION. TRANSPORT BEGINS NON-EMERGENT TO [facility] PER PT REQUEST. EN ROUTE, ONGOING ASSESSMENTS NOTED. PT DENIES SUBJECTIVE IMPROVEMENT IN COMPLAINT. VITALS REMAIN STABLE, AND PT SHOWS NO SIGNIFICANT SIGNS OF DETERIORATION. 319 ARRIVES AT DESTINATION WITHOUT INCIDENT. PT SIGNS NOTICE OF PRIVACY RIGHTS, AND A MASK IS PROVIDED TO HIM. COT UNLOADED, TAKEN TO ED 9, WHERE PT IS TRANSFERRED TO ED BED VIA DRAW SHEET. VERBAL REPORT GIVEN, AND ED RN SIGNS TRANSFER OF CARE. 319 CLEAR AND AVAILABLE. MARGARET HARVEY, EMT-P. Initial Vitals @16:24SpO2: 97, @16:26SpO2: 97, @16:32SpO2: 97, @16:36SpO2: 97, @16:46SpO2: 97, @16:56SpO2: 98, @PTASpO2: 89, @16:26 @16:32 @16:46 @16:32Temp: [id number], @16:26P: 125,R: 22,BP: 84/58, [facility] [address] [place] [address] EMS Patient Care Report Name: THU HAWKINS Room #: REG NALLELY Mason#: [id number] Admission: 12/21/20 Attend Phys: Discharge: Date of : 60 Report #: [id number] @16:36P: 118,R: 24,BP: 89/59, @16:46P: 116,R: 18,BP: 94/64, @16:56P: 119,R: 16,BP: 109/68, @PTAP: 112,BP: 90/64, @16:88WzSH6: 32, @16:36TjHC2: 32, @16:03GkJL1: 31, @16:67TeEH4: 32, @16:65CgYA0: 34, @16:26GCS: 15, @16:36GCS: 15, @16:46GCS: 15, @16:56GCS: 15, @PTAGCS: 15, @PTAGlucose: 488, Assessments @16:18MENTAL:SKIN:HEENT:LUNG SOUNDS:ABDOMEN:PELVIS//GI:EXTREMITIES:PULSE:NEURO: Impression Acute Respiratory Distress (Dyspnea) Procedures @PTAOxygen Complications: ,Response: Improved@16:32 cc () Site: Antecubital-LeftResponse: UnchangedSucceeded@16:38YRAO4 digital capnographyResponse: UnchangedSucceeded@16:47QFII4 digital capnographyResponse: UnchangedSucceeded@16:27ABCP6 digital capnographyResponse: UnchangedSucceeded@16:77FVHK6 digital capnographyResponse: UnchangedSucceeded@16:70FCZM0 digital capnographyResponse: UnchangedSucceeded@16:2612-Lead ECGResponse: UnchangedSucceeded@16:323-Lead ECGResponse: UnchangedSucceeded@16:4612-Lead ECGResponse: UnchangedSucceeded Timeline BACKEND PYTHON DEVELOPER,Oxygen Complications: ,,Response: Improved BACKEND PYTHON DEVELOPER,BP: / M,PULSE: ,RR: R,SPO2: 89 Ox,ETCO2: ,BG: ,PAIN: ,GCS: , BACKEND PYTHON DEVELOPER,BP: 90/64 M,PULSE: 112,RR: R,SPO2: Ox,ETCO2: ,BG: ,PAIN: ,GCS: , BACKEND PYTHON DEVELOPER,BP: / M,PULSE: ,RR: R,SPO2: Ox,ETCO2: ,BG: ,PAIN: ,GCS: 15, BACKEND PYTHON DEVELOPER,BP: / M,PULSE: ,RR: R,SPO2: Ox,ETCO2: ,B,PAIN: ,GCS: , 16:18,Call Received 16:00,Dispatch Notified 16:00,Psap Call 16:03,Dispatched 16:03,En Route 16:16,On Scene 16:18,At Patient [facility] [address] [place] [address] EMS Patient Care Report Name: THU HAWKINS Room #: REG [facility]#: [id number] Admission: 12/21/20 Attend Phys: Discharge: Date of : 60 Report #: [id number] 16:24,BP: / M,PULSE: ,RR: R,SPO2: 97 Ox,ETCO2: ,BG: ,PAIN: ,GCS: , 16:26,12-Lead ECG,Response: UnchangedSucceeded, 16:26,BP: / M,PULSE: ,RR: R,SPO2: 97 Ox,ETCO2: ,BG: ,PAIN: ,GCS: , 16:26,BP: / M,PULSE: ,RR: R,SPO2: Ox,ETCO2: ,BG: ,PAIN: ,GCS: , 16:26,BP: 84/58 M,PULSE: 125,RR: 22 R,SPO2: Ox,ETCO2: ,BG: ,PAIN: ,GCS: , 16:26,BP: / M,PULSE: ,RR: R,SPO2: Ox,ETCO2: ,BG: ,PAIN: ,GCS: 15, 16:28,ETCO2 digital capnography,Response: UnchangedSucceeded, 16:28,BP: / M,PULSE: ,RR: R,SPO2: Ox,ETCO2: 32 ,BG: ,PAIN: ,GCS: , 16:32, cc Site: Antecubital-Left,Response: UnchangedSucceeded, 16:32,ETCO2 digital capnography,Response: UnchangedSucceeded, 16:32,3-Lead ECG,Response: UnchangedSucceeded, 16:32,BP: / M,PULSE: ,RR: R,SPO2: 97 Ox,ETCO2: ,BG: ,PAIN: ,GCS: , 16:32,BP: / M,PULSE: ,RR: R,SPO2: Ox,ETCO2: ,BG: ,PAIN: ,GCS: , 16:32,BP: / M,PULSE: ,RR: R,SPO2: Ox,ETCO2: ,BG: ,PAIN: ,GCS: , 16:32,BP: / M,PULSE: ,RR: R,SPO2: Ox,ETCO2: 32 ,BG: ,PAIN: ,GCS: , 16:35,Depart Scene 16:36,ETCO2 digital capnography,Response: UnchangedSucceeded, 16:36,BP: / M,PULSE: ,RR: R,SPO2: 97 Ox,ETCO2: ,BG: ,PAIN: ,GCS: , 16:36,BP: 89/59 M,PULSE: 118,RR: 24 R,SPO2: Ox,ETCO2: ,BG: ,PAIN: ,GCS: , 16:36,BP: / M,PULSE: ,RR: R,SPO2: Ox,ETCO2: 31 ,BG: ,PAIN: ,GCS: , 16:36,BP: / M,PULSE: ,RR: R,SPO2: Ox,ETCO2: ,BG: ,PAIN: ,GCS: 15, 16:46,ETCO2 digital capnography,Response: UnchangedSucceeded, 16:46,12-Lead ECG,Response: UnchangedSucceeded, 16:46,BP: / M,PULSE: ,RR: R,SPO2: 97 Ox,ETCO2: ,BG: ,PAIN: ,GCS: , 16:46,BP: / M,PULSE: ,RR: R,SPO2: Ox,ETCO2: ,BG: ,PAIN: ,GCS: , 16:46,BP: 94/64 M,PULSE: 116,RR: 18 R,SPO2: Ox,ETCO2: ,BG: ,PAIN: ,GCS: , 16:46,BP: / M,PULSE: ,RR: R,SPO2: Ox,ETCO2: 32 ,BG: ,PAIN: ,GCS: , 16:46,BP: / M,PULSE: ,RR: R,SPO2: Ox,ETCO2: ,BG: ,PAIN: ,GCS: 15, 16:56,ETCO2 digital capnography,Response: UnchangedSucceeded, 16:56,BP: / M,PULSE: ,RR: R,SPO2: 98 Ox,ETCO2: ,BG: ,PAIN: ,GCS: , 16:56,BP: 109/68 M,PULSE: 119,RR: 16 R,SPO2: Ox,ETCO2: ,BG: ,PAIN: ,GCS: , 16:56,BP: / M,PULSE: ,RR: R,SPO2: Ox,ETCO2: 34 ,BG: ,PAIN: ,GCS: , 16:56,BP: / M,PULSE: ,RR: R,SPO2: Ox,ETCO2: ,BG: ,PAIN: ,GCS: 15, 17:03,At Destination 17:21,Call Closed Disclaimer v1.1 Copyright 2020 [email or web address] This EMS Care Summary contains data elements from the applicable legal record (which may be displayed differently). It is designed to provide pertinent information for the following purposes: continuity of care, clinical quality, and state data reporting. The complete legal record is available to ED staff and administrators of the receiving hospital in [email or web address]'s Patient Tracker. All data is provided "as is."
[~2020-12-21 17:08] MED LIST changes: +ATENOLOL 50MG T50 M1 PO; +LORAZEPAM 0.50.5 MG PO
[2020-12-21 17:09] VITALS: BP 87/60
[2020-12-21 18:38] LABS: HEMATOCRIT 36.5 % (42.0-52.0); MCH 30.4 pg (26.0-34.0); MCHC 32.7 g/dL (28.0-37.0); MCV 92.9 fL (80.0-100.0); PLATELET COUNT 502 thou/uL (150-400); RBC 3.94 mil/uL (4.50-6.00); RDW 14.1 % (10.5-14.5); WBC 22.3 thou/uL (4.0-11.0)
[2020-12-21 18:47] LABS: CALCIUM 8.7 mg/dL (8.5-10.1); CREATININE 0.8 mg/dL (0.7-1.3)
[2020-12-21 18:49] LABS: PHOSPHORUS 3.3 mg/dL (2.6-4.7)
[2020-12-21 18:50] LABS: POTASSIUM 2.9 mmol/L (3.5-5.1)
[2020-12-21 18:52] LABS: ALBUMIN 2.5 g/dL (3.4-5.0); TOTAL BILIRUBIN 0.4 mg/dL (0.2-1.0)
[2020-12-21 20:43] LABS: URINE BILIRUBIN 1+ (Negative); URINE BLOOD NEGATIVE (Negative); URINE CLARITY CLEAR; URINE COLOR YELLOW; URINE GLUCOSE-RANDOM* 2+ (Negative); URINE KETONES 2+ (Negative); URINE LEUKOCYTES-REFLEX NEGATIVE (Negative); URINE NITRITE-REFLEX NEGATIVE (Negative); URINE PROTEIN (DIPSTICK) NEGATIVE (Negative); URINE SPECIFIC GRAVITY 1.015 (1.005-1.035); URINE UROBILINOGEN 0.2 E.U./dl (0.2-1.0)
[2020-12-21 20:44] LABS: ICTOTEST (BILI CONFIRMATORY) Positive (Negative)
[2020-12-21 21:02] VITALS: BP 95/61
[2020-12-22 10:52] LABS: HEMATOCRIT 34.9 % (42.0-52.0); HEMOGLOBIN 11.2 gm/dL (14.0-18.0); MCH 29.6 pg (26.0-34.0); MCV 92.6 fL (80.0-100.0); RBC 3.77 mil/uL (4.50-6.00); WBC 14.5 thou/uL (4.0-11.0)
[2020-12-22 11:26] LABS: ALBUMIN 2.2 g/dL (3.4-5.0); CREATININE 0.6 mg/dL (0.7-1.3); POTASSIUM 3.1 mmol/L (3.5-5.1); TOTAL BILIRUBIN 0.5 mg/dL (0.2-1.0); TOTAL PROTEIN 6.2 g/dL (6.4-8.2)
[2020-12-22 16:32] VITALS: BP 115/61
--- NOTE | 2020-12-22 18:12 | NUR ---
60 year old male presents to the ED on 12-21-20 with a history of Lung CA and per EMS SOA and generalized weakness. Pt notes diarrhea, abdominal pain, flank pain, and lack of appetite. Pt recently had a chest tube placed for pneumothorax. He has partial lobectomy. States he is gotten to the point he can no longer walk or care for himself. While in the ED ID NOW is negative and listed as not vaccinated in the ED Triage assessment. The patient has been admitted with Sepsis - Lung CA s/p recent resection - DMII - Hypokalemia and Diarrhea. The patient has been placed on IV ABT's, IVF with consults to Pulmonology and CV surgery. Patient last seen by CM on 12-11-20 and discharged to home with his mother on 12-12-20. His mother is listed as his next of kin of Janelle Barba at either [phone] or cell of [phone]. Anticipate as plan of care with medical team develops in conjunction with patient reporting unable to care for self at this time - CM will follow for any identified needs at discharge.
[2020-12-22 23:08] VITALS: BP 116/67
[2020-12-22 23:38] VITALS: BP 134/73
[2020-12-23] VITALS (9 sets, daily range): BP systolic 78–112; BP diastolic 46–63
--- NOTE | 2020-12-23 03:51 | NUR ---
PATIENT IS A NEW ADMISSION TO THE UNIT THIS SHIFT. HE ARRIVED VIA CART FROM THE ER AND WAS TRANSFERRED TO THE BED WITHOUT INCIDENT. PATIENT IS ALERT AND ORIENTED AND ABLE TO FULLY PARTICIPATE IN ADMISSION. PRIMARY CONCERN FOR PATIENT IS PAIN IN RIGHT "RIB CAGE" WELL PROGRESSIVE WEAKNESS AND RECENT DIARRHEA. PATIENT STATES FEELING "A LITTLE" SHORT OF AIR SO HE WAS STARTED ON TWO LITERS NASAL CANNULA. NURSE TO COMPLETE HIS ADMISSION AND INITIATE PLAN OF CARE.
[2020-12-23 09:13] LABS: HEMATOCRIT 36.4 % (42.0-52.0); HEMOGLOBIN 11.6 gm/dL (14.0-18.0); MCH 29.5 pg (26.0-34.0); MCV 92.3 fL (80.0-100.0); RBC 3.95 mil/uL (4.50-6.00); RDW 14.2 % (10.5-14.5); WBC 12.1 thou/uL (4.0-11.0)
[2020-12-23 09:55] LABS: ALBUMIN 2.2 g/dL (3.4-5.0); CALCIUM 7.9 mg/dL (8.5-10.1); CREATININE 0.5 mg/dL (0.7-1.3); TOTAL BILIRUBIN 0.5 mg/dL (0.2-1.0); TOTAL PROTEIN 6.2 g/dL (6.4-8.2)
[2020-12-23 10:00] LABS: POTASSIUM 2.7 mmol/L (3.5-5.1)
--- NOTE | 2020-12-23 10:31 | NUR ---
WOUND CONSULT; THIS MAN IS A FRAIL 60 YEAR OLD MALE. ALTERT/ORIENTED COMMUNICATES WELL. HIS MOTHER IS WITH HIM. THE PATIENT WAS SEEN BY DR CHAVEZ AND HAD A PART OF HIS LUNG REMOVED IN A PRIEVIOUS ADMISSION WITH SEVERAL SITES THAT HAVE SURICAL GLUE THAT IS FLAKING TO HIS BACK/CHEST/FLANK NO DRAIANGE. THERE IS AN UNSTAGEABLE COCCYX PRESSURE INJURY THAT HAS UNSTABLE ESCHAR/ERYTHEMA TO PERIWOUND. THE PATIENT CAN TURN HIMSELF BUT NEEDS ENCOURAGEMENT. I ADDED A LOW AIRLOSS PUMP TO HIS BED FOR PRESSURE REDISTRIBUTION. RECCOMMENDATION; -CONSULT DR LEDY MARTINEZ FOR WOUND MANAGEMENT.
--- NOTE | 2020-12-23 13:33 | NUR ---
met with patient who recently dc from hospital. Patient admits with weakness/sepsis. Patient with hx of lobectomy. Patient reports he lives at home alone. He has oxygen via [employer] at mothers home. Patient does not have a walker/cane. Patient reports all needs on one level. agreeable for casemgt to call mother. When patient dc from ICU on prev stay patient dc home no needs. Dr Artis requested this casemgt call mother. Prev called mom and she reports hospice was coming to see patient. called mother today. She reports when patient dc prev he came to her home. Mother reports he did not move or ambulate much. He also was not eating much. [facility] met with patient and he told her he "wanted to live." Mom reports he started to eat better. She reports he has his own home in [place]. The home has no air conditioning. Mom reports patient would stay at her home then at 2am he would leave home in middle the night and go his home. Mom reports he went to his home to smoke. Mom reports she went to his home and called EMS. Patient found down. Discussed post acute care. Reviewed skilled vs rehab. Mother hopeful patient can be a candidate for acute rehab [facility]. Gave patient [facility] list.
--- NOTE | 2020-12-23 13:55 | NUR ---
Nutrition: Severely malnourished patient, Hx chronic poor po and > 40% UBW loss with severe muscle/fat wasting. Would suggest consideration of feeding tube placement if within plan of care.
--- NOTE | 2020-12-23 19:03 | NUR ---
1647: PT BP 78/42, DR MICHEL CALLED. RECIEVED ORDERS TO DC MORPHINE, GIVE 1000ML NS BOLUS AND NOT TO GIVE NORCO UNTIL SBP IS 100 OR GREATER. 1902: CHECKED PT BP 86/45. DR. MICHEL CALLED AND NOTIFIED. PT HAS NO C/O DIZZY OR LIGHT HEADEDNESS. RECIEVED ORDER TO INCREASE CURRENT FLUIDS TO 160ML/HR.
[2020-12-23 22:29] LABS: CALCIUM 7.6 mg/dL (8.5-10.1); CREATININE 0.6 mg/dL (0.7-1.3); POTASSIUM 3.4 mmol/L (3.5-5.1)
[2020-12-24 04:59] VITALS: BP 99/66
--- NOTE | 2020-12-24 05:16 | NUR ---
RECEIVED PATIENT CONSCIOUS AND ORIENTED.ON NASAL CANNULA AT 2LPM.NOT IN DISTRESS.PAIN MANAGEMENT DONE, PAIN MEDS GIVEN ACCORING TO PATIENT'S BLOOD PRESSURE.ENCOURAGED PATIENT TO TURN FROM SIDE TO SIDE AT LEAST EVERY 2 HOURS.FALL PREVENTION MEASURES MAINTAINED.ALL NEEDS ATTENDED.
[2020-12-24 07:40] VITALS: BP 99/61
[2020-12-24 11:25] VITALS: BP 99/60
--- NOTE | 2020-12-24 12:07 | NUR ---
[facility] acute rehab eval pending today. Pt having video swallow at 1300 as well. Will follow.
[2020-12-24] MEDS ORDERED: REMERON 30 MG T30 M1 PO (12:50)
[2020-12-24] MEDS ORDERED: GABAPENTIN 100100 MG PO (12:50)
[2020-12-24] MEDS ORDERED: MARINOL 2.5 MG2.5 M1 PO (12:50)
[2020-12-24 15:55] VITALS: BP 89/53
--- NOTE | 2020-12-24 17:02 | NUR ---
Patient evaled by [facility] they can accept and submit for auth. patient wants to return home with HH. His oxygen from [employer] is at moms home. Patient would benefit from acute rehab. Sp with mom who feels patient needs acute rehab. She reports he is noncompliant on out patient basis. Mother vents frustration of patient continuing to smoke. She is frustrated with his non compliance. [facility] liason to meet with patient in am.
[2020-12-24 19:40] VITALS: BP 100/60
[2020-12-25] VITALS (8 sets, daily range): BP systolic 91–102; BP diastolic 56–65
--- NOTE | 2020-12-25 04:25 | NUR ---
RECEIVED THE PATIENT ON BED, CONSCIOUS AND ORIENTED.ON XYGEN SUPPORT VIA NASAL CANNULA SATURATING WELL.PAIN MANAGEMENT DONE.PAIN MEDICATION GIVEN ACOORING TO HIS BLOOD PRESSURE.DRESSING DONE ASEPTICALLY ON THE PATIENT'S COCCYX.ALL NEEDS ATTENDED.FALL PREVENTION MEASURES MAINTAINED.
--- NOTE | 2020-12-25 11:55 | NUR ---
AUTHORIZATION FOR ACUTE INPATIENT REHAB STAY REQUESTED FROM PATIENT'S INSURANCE THIS DATE. INFORMATION FAXED. WILL AWAIT INSURANCE RESPONSE.
[2020-12-25] MEDS ORDERED: LEVOFLOXACIN500 MG PO (12:00)
--- NOTE | 2020-12-25 14:57 | NUR ---
[facility] has submitted for ins auth and visited with the pt this am. They can accept once auth rec'd. PT/OT/ST working with him. Care team reports increased confusion today and they have notified the attending. ST working with cognitive issues as well as his mod diet. Pt refused a nicotine patch per unit RN. [facility] liason here and following along.
--- NOTE | 2020-12-25 16:59 | NUR ---
AUTHORIZATION REQUESTED THIS DATE WITH PATIENT'S INSURANCE. DENIAL RECIEVED THIS PM AROUN 9183. INSURANCE STATES THAT PATIENT HAS QUESTIONABLE TOLERANCE FOR ACUTE REHAB WITH CA DIAGNOSIS. [employer]RAF[employer] ENGINEER[employer] AT [facility] NOTIFIED OF DECISION AND CONTACTED PATIENT'S ATTENDING PHYSICIAN TO SEE IF PHYSICIAN WOULD LIKE TO INITIATE PEER TO PEER. PHYSICIAN DECISION WAS TO SEND PATIENT TO HOME WITH HOME HEALTH CARE OVER THE WEEKEND. NO PEER TO PEER ATTEMPTED. THANK YOU FOR THIS REFERRAL.
--- NOTE | 2020-12-25 17:08 | NUR ---
DC summary and instructions will need to be faxed to [facility] [phone] and their oncall notified at time of dc [phone] so they can see if within 24hrs.
--- NOTE | 2020-12-26 03:12 | NUR ---
PT IS ALERT AND ORIENTED WITH CONFUSION AND FORGETFULNESS. HE IS VERY IMPULSIVE.USES URINAL, GOOD U/O NOTED.PT HAS A CONSTANT PAIN TO RIGHT RIBCAGE. HE APPEARS VERY WEAK/FRAIL.02 @3L/NC. CONTINUES ON IVF. FALL PREC IN PLACE, CALL LIGHT WITHIN REACH.
[2020-12-26 04:14] VITALS: BP 97/60
[2020-12-26 08:05] VITALS: BP 122/70
[2020-12-26 09:21] VITALS: BP 91/56
[2020-12-26 09:39] VITALS: BP 91/56
--- NOTE | 2020-12-26 11:00 | NUR ---
FAXED D/C ORDERS AND SUMMARY TO [facility] [employer]BEAR[employer] WEEKEND WILL CALL FOR CONFIRMATION UPON RECIEVING. [facility]
--- NOTE | 2020-12-26 11:24 | NUR ---
MARY ANNE FROM [employer] RECEIVED FAX. [facility]
--- NOTE | 2020-12-26 11:49 | NUR ---
MARY ANNE CALLED WITH CONFIRMATION OF FAX
== END 2020-12-26 12:10 | DRG 871 ==
LOC: ER 17:08 → EROBS 19:43 → TBA 12-22 13:43 → EROBS 12-22 14:27 → 2N 12-22 23:16
PROVIDERS: Student in an Organized Health Care Education/Training Program; ADMIT Family Medicine; ATTEND Family Medicine
DX: A41.9 Sepsis, unspecified organism (principal); J18.9 Pneumonia, unspecified organism; E43 Unspecified severe protein-calorie malnutrition; E87.1 Hypo-osmolality and hyponatremia; C34.90 Malignant neoplasm of unspecified part of unspecified bronchus or lung; Z68.1 Body mass index [BMI] 19.9 or less, adult; Z20.822 Contact with and (suspected) exposure to COVID-19; Z79.899 Other long term (current) drug therapy; I95.9 Hypotension, unspecified; E87.6 Hypokalemia; E11.65 Type 2 diabetes mellitus with hyperglycemia; Z79.4 Long term (current) use of insulin
CPT/HCPCS: 10081

== ENCOUNTER → 2021-01-06 | Outpatient (CLI) | payer BC, OTHER ==
[~2021-01-06] MED LIST changes: +GABAPENTIN 100100 MG PO; +LEVOFLOXACIN500 MG PO; +MARINOL 2.5 MG2.5 M1 PO; +REMERON 30 MG T30 M1 PO
== END ==
LOC: RAD 11:46
PROVIDERS: ATTEND Family Medicine
DX: C34.90 Malignant neoplasm of unspecified part of unspecified bronchus or lung (principal); R91.8 Other nonspecific abnormal finding of lung field

== ENCOUNTER 2021-02-07 06:16 | Inpatient (IN) | payer BC, OTHER ==
[2021-02-07] VITALS (8 sets, daily range): BP systolic 85–123; BP diastolic 52–73
[~2021-02-07] VITALS: Ht 182.9 cm; Wt 45.8 kg
[2021-02-07 06:54] LABS: ABSOLUTE NEUTROPHILS 11.1 thou/uL (1.4-8.2); BASOPHILS 0.4 % (0.0-2.0); EOSINOPHILS 0.3 % (0.0-3.0); HEMATOCRIT 36.6 % (42.0-52.0); HEMOGLOBIN 11.9 gm/dL (14.0-18.0); LYMPHOCYTES 6.4 % (24.0-44.0); MCH 29.2 pg (26.0-34.0); MCHC 32.4 g/dL (28.0-37.0); MCV 90.1 fL (80.0-100.0); MONOCYTES 5.3 % (1.0-8.0); PLATELET COUNT 395 thou/uL (150-400); POLYS 87.6 % (36.0-66.0); RBC 4.06 mil/uL (4.50-6.00); RDW 15.2 % (10.5-14.5); WBC 12.7 thou/uL (4.0-11.0)
[2021-02-07 07:12] LABS: ANION GAP 2 mmol/L (7-16); BUN 6 mg/dL (7-18); CALCIUM 8.4 mg/dL (8.5-10.1); CHLORIDE 104 mmol/L (98-107); CO2 36 mmol/L (21-32); CREATININE 0.5 mg/dL (0.7-1.3); GLUCOSE 56 mg/dL (74-106); SODIUM 142 mmol/L (136-145)
[2021-02-07 07:18] LABS: POTASSIUM 2.9 mmol/L (3.5-5.1)
[2021-02-07 07:22] LABS: DIRECT BILIRUBIN < 0.1 mg/dL (<0.1-0.2); SGOT 22 U/L (15-37); SGPT 20 U/L (16-63); TOTAL BILIRUBIN 0.3 mg/dL (0.2-1.0); TOTAL PROTEIN 6.6 g/dL (6.4-8.2)
--- NOTE | 2021-02-07 19:44 | NUR ---
ADMISSION NOTE: Pt received to room 200 around 1145. Pt wearing ventimask, 15L sating 100%. Admission assessment documented & education provided to pt. Forms signed & in chart. Tele monitor applied. Call light within reach.
[2021-02-07 21:42] LABS: BE(vivo) 8.9 mmol/L (-2 to +3); HCO3 32.6 mmol/L (22.0-26.0); PCO2 40.9 mmHg (35.0-45.0); pH 7.519 (7.360-7.450); sO2 82.2 % (92.0-98.0)
[2021-02-07 21:43] LABS: PO2 41.6 mmHg (80.0-100.0)
--- NOTE | 2021-02-07 23:44 | NUR ---
ON FIRST ASSESSMENT PT FOUND SATING 85% ON 2L/NC, IV'S INFILTRATED ON LARM X2, C/O OF RIB PAIN, BP LOW AT 85/52, ATENOLOL HELD, PAIN MED GIVEN, AFTER MANY STICKS NEW IV FOUND WITH US IN LEFT UPPER ARM, PT PLACED ON VENTI MASK 50%, ABG DRAWN, NEW SAT PROBES AND MONITOR PLACED, DR HOLDEN CALLED AND UPDATED ORDER 40 MG IV LASIX, AND OK'D BIPAP IF NEEDED, PT BP OTX556/54, VOIDING PER URINAL, SAT'S 99% ON THE VENTI MASK, FLUIDS IN FUSING WILL CON'T TO MONITOR PER PPOC.
[2021-02-08 00:14] VITALS: BP 120/66
[2021-02-08 04:07] VITALS: BP 115/65
[2021-02-08 05:00] LABS: CALCIUM 8.2 mg/dL (8.5-10.1); CREATININE 0.7 mg/dL (0.7-1.3); POTASSIUM 3.2 mmol/L (3.5-5.1)
[2021-02-08 05:22] LABS: HEMOGLOBIN 11.4 gm/dL (14.0-18.0); MCH 29.2 pg (26.0-34.0); MCHC 31.8 g/dL (28.0-37.0); MCV 91.8 fL (80.0-100.0); RBC 3.92 mil/uL (4.50-6.00); RDW 15.4 % (10.5-14.5); WBC 12.8 thou/uL (4.0-11.0)
--- NOTE | 2021-02-08 07:19 | EKG ---
[place] [address] [address] [facility] [place] [address] ELECTROCARDIOGRAM REPORT Name: LEDY HAWKINSREY ROWENA Room #: 200-I ADM IN M.R.#: [id number] Admission: 02/07/21 Attend Phys: Tai Martin MD Discharge: Date of : 60 Report #: [id number] [facility] ED Test Date: 2021-02-07 Test Time: 06:47:11 Pat Name: THU HAWKINS Department: Room: 200 Gender: M Surveillance Monitor: OCTAVIO : 1960 Requested By: Stephanie Narayanan Order Number: [id number] MD: Darien Bernal Measurements Intervals [place] Rate: 106 P: 64 PA: 143 QRS: 66 QRSD: 95 T: 249 QT: 361 QTc: 480 Interpretive Statements Sinus tachycardia Abnormal R-wave progression, early transition Repol abnrm suggests ischemia, diffuse leads Compared to ECG 12/11/2020 07:54:31 Possible ischemia now present Ventricular premature complex(es) no longer present Electronically Signed On 02-08-2021 7:19:14 CDT by Darien Bernal [email or web address] <ELECTRONICALLY SIGNED> By: Darien Bernal MD, FACC 02/08/21 0719 [id number] Darien Bernal MD, [facility] /EPI
[2021-02-08 07:56] VITALS: BP 144/89
[2021-02-08 12:08] VITALS: BP 106/71
[2021-02-08 16:08] VITALS: BP 107/80
[2021-02-08 19:09] VITALS: BP 111/70
[2021-02-09 03:54] VITALS: BP 124/63
--- NOTE | 2021-02-09 08:54 | NUR ---
ASSUME CARE 1900. PT/VITALS STABLE. CONSISTENT RIB.SIDE PAIN WIT MODERATE RELIEF FROM PAIN MEDS. VERY POOR TOLERANCE TO ACTIVITY. SOB NOTED WITH REST AND ACTIVITY. ASSESSMENT CHARTED. POOR PROGRESS WITH POC. SR ON MONITOR. PLAN IS TO CONITNUE TO MONITOR AND MANAGE RESPIRATORY FUNCTION. WILL CONTINUE TO MONITOR AND FOLLOW WITH POC
[2021-02-09 11:52] VITALS: BP 93/54
--- NOTE | 2021-02-09 15:31 | NUR ---
Met with patient and mother at bedside. Patient has home in [place]. At this time staying at mothers home post recovery. Patient with recent hosp stay. At that time went home with [facility] Javier [facility]. Mother reports it was too much HH care. She reports one day they had 3 disciplines come to home. She reports at md they plan to use [facility]. They only want PT. Mother reports she has paid out of pocket for HH PT. Prepaid for 4 sessions. Left message with [facility]. Patient has walker at home. he has home oxygen via [employer] at mothers home. Mother reports psych to see patient. he has been depressed and no appetite per mother. Patient rec bronch today. Reports feeling so much better. Plan home with [facility] at md.
[2021-02-09 16:25] VITALS: BP 91/57
--- NOTE | 2021-02-09 16:51 | NUR ---
ASSESSMENT CHARTED - MEDS PER JUN - GIVEN MEDICATION FOR PAIN MS X 2 DOSED AND HYDRO X 1 WITH MOD EFFECT ON RIB PAIN. ACCUCHECKS CHARTED COVERED PRE SSI. SEEN BY PHYS AND OCC THERAPY THIS SHIFT. BRONCHOSCOPY COMPLETED THIS AM - PT TAKEN OFF NRB AND PLACED ON O2 @ 4 LNC SAT 100%. PT DOES GET SOB WITH IN EXERTION. PT HAS PERIODS OF CONFUSION AND KNOWS THAT HE IS CONFUSED AT TIMES. NO CO'S AT THE PRESENT TIME.
[2021-02-09 19:43] VITALS: BP 89/53
[2021-02-09 21:00] VITALS: BP 148/74
[2021-02-10] VITALS (7 sets, daily range): BP systolic 92–107; BP diastolic 53–62
--- NOTE | 2021-02-10 07:02 | HC ---
[facility] [place] [address] CONSULTATION Name: THU HAWKINS Room #: 200-I ADM IN M.R.#: [id number] Admission: 02/07/21 Attend Phys: Tai Martin MD Discharge: Date of : 60 Report #: [id number] THIS REPORT FOR: cc: Tai Martin MD, Neal A. MD Forman, John M. MD ~ DATE OF SERVICE: 02/08/2021 We were asked to see this patient by Dr. Martin. HISTORY OF PRESENT ILLNESS: The patient is a 60-year-old known to me from previous surgery. The patient is status post upper and middle lobectomy for carcinoma in October of this year. The patient had previous history of important chronic obstructive pulmonary disease and his pulmonary reserve was tested with surgery. The patient had difficulty with the remaining lower lobe and required a second thoracotomy for chronic atelectasis and that lobe required a decortication. Ultimately, we were able to keep the lung inflated. There was a large airspace in the upper part of the left chest that we expected would slowly fill with fluid. The patient has done poorly at home, however, and has needed chronic oxygen treatment. He also has a very low activity level and poor diet and has been wasting away in bed. The patient was admitted on 02/07/2021 with progressive shortness of breath and weakness. Chest x-ray showed complete atelectasis once again of the lower lobe. PAST MEDICAL HISTORY: Significant for diabetes mellitus, diagnosed when he was last in the hospital. The patient also has important chronic obstructive pulmonary disease. He is also treated for depression, dysphagia. HOME MEDICATIONS: Include gabapentin, Remeron, Marinol, levofloxacin, atenolol, lorazepam, hydrocodone. ALLERGIES: IBUPROFEN CAUSES GI INTOLERANCE. SOCIAL HISTORY: The patient is currently living with his mother. He is unmarried, no children. Positive for tobacco use. REVIEW OF SYSTEMS: CONSTITUTIONAL: Denies fever or chills. Has been losing weight at home. EYES: Denies vision change. HEENT: Denies headache, hearing change, sinus problems. RESPIRATORY: Progressive shortness of breath with productive cough. CARDIAC: Denies angina. Denies palpitations. [address] [address] CONSULTATION Name: THU HAWKINS ROWENA Room #: 200-I [facility] IN ..#: [id number] Admission: 02/07/21 Attend Phys: Tai Martin MD Discharge: Date of : 60 Report #: [id number] GASTROINTESTINAL: Denies nausea or vomiting, has intermittent GI distress, however. GENITOURINARY: Denies burning, frequency, urgency. MUSCULOSKELETAL: Denies bone or joint pain, just generalized weakness and muscles. SKIN: Denies rash or infection. NEUROLOGIC: Denies focal motor or sensory dysfunction. ENDOCRINE: Denies goiter or tremor. HEMATOLOGIC: Denies bruisability, bleeding, anemia. PHYSICAL EXAMINATION: GENERAL: The patient is lying in bed, but is arousable and awake. VITAL SIGNS: Temperature 36.5, heart rate 103, respiratory rate 21, blood pressure 144/89, O2 sat 96 on 15 liters. HEENT: No scleral icterus. NECK: No mass. I hear no bruit. CHEST: Decreased breath sounds, particularly on the right side. HEART: Rhythm regular. ABDOMEN: Soft. EXTREMITIES: No cyanosis or edema. Mild clubbing. MUSCULOSKELETAL: No bone or joint asymmetry or deformity. SKIN: No rash or infection. NEUROLOGIC: No motor or sensory dysfunction. PSYCHIATRIC: Oriented and answers questions appropriately, but flat affect. ASSESSMENT AND PLAN: The patient is chronically weak related to poor diet and I suspect chronic pulmonary issues. The patient is on oxygen at home, poor pulmonary toilet has led to retained secretions and this just compounds the need for oxygen. We have discussed bronchoscopy to inspect the tracheobronchial tree and to remove retained secretions. This will be short-term benefit. However, the patient will need to redouble his efforts, we hope this will allow us to have the patient regain his strength. Today, potassium is low and perhaps a day would be better spent rehydrating the patient and replenishing fluid and electrolyte losses, so that we can more safely perform bronchoscopy with anesthesia tomorrow. Risks and details have been discussed with the patient and the family and they agree with this approach. Thank you for the consult. <ELECTRONICALLY SIGNED> By: Kenny Wilson MD 02/10/21 0702 [id number] 0001 Kenny Wilson MD /nt
--- NOTE | 2021-02-10 07:02 | O ---
[facility] [place] [address] OPERATIVE REPORT Name: THU HAWKINS Room #: 200-I ADM IN M.R.#: [id number] Admission: 02/07/21 Attend Phys: Tai Martin MD Discharge: Date of : 60 Report #: [id number] THIS REPORT FOR: cc: Tai Martin MD, Neal A. MD Forman, John M. MD ~ DATE OF SERVICE: 02/09/2021 PREOPERATIVE DIAGNOSIS: Chronic atelectasis, right lower lobe of lung. POSTOPERATIVE DIAGNOSIS: Chronic atelectasis, right lower lobe of lung. OPERATION: Flexible fiberoptic bronchoscopy (therapeutic and diagnostic). SURGEON: Dr. Kenny Wilson. APPLE PRESS OPERATOR: GISSELLE Anthony. ANESTHESIA: General. INDICATIONS: The patient is a 60-year-old fellow who had right upper and middle lobe resection for a large cancer in October 2020. The patient had a complicated postoperative course related to poor ventilatory function and required a decortication of the right lower lobe subsequently. The patient has done generally well since that time, but he has slowly deteriorated with poor nutrition and generalized weakness in the absence of a diagnosis of recurrent cancer. Chest x-ray reveals total atelectasis of the lower lobe and suspicion is that the patient has inspissated secretions that he cannot clear. FINDINGS AND TECHNIQUE: After general anesthesia was established, flexible diagnostic bronchoscopy was performed. The trachea and the left-sided bronchi all were normal. The bronchial stump of the upper lobe was healing nicely. The bronchial stump of the middle lobe was healing nicely. The lower lobe bronchi on the right were packed with secretions. Bronchoscopy allowed us to clear the secretions and a combination of thick mucus, blood clot, and more organized mucus was aspirated. Samples of this were sent for culture. When we had completed the bronchoscopy, there were no further secretions evident, positive pressure ventilation was used to help open the lobe. [facility] [address] [place] [address] OPERATIVE REPORT Name: JOEYAMADOTHU GUAMAN Room #: 200-I [facility] IN [facility].#: [id number] Admission: 02/07/21 Attend Phys: Tai Martin MD Discharge: Date of : 60 Report #: [id number] The patient tolerated the procedure well and was taken to the recovery area in good condition. <ELECTRONICALLY SIGNED> By: Kenny Wilson MD 02/10/21701 0737 Kenny Wilson MD /nt
--- NOTE | 2021-02-10 07:35 | NUR ---
PT PULLED OFF O2, SAT MONITOR, PROGRAM PARAPROFESSIONAL, IV AND DRESSED IN HIS STREET CLOTHES AND WALKED OU TO NURSES STATION, REPLACED ALL MONITORS AND O2 PT APOLOGIZED AND NOW A&O, 3 IV STICKS AND PT THINKS A PICC LINE WOULD HELP KEEP HIM FROM GETTING SO MANY STICKS, PRN MEDS GIVEN CHARTED FOR C/O RIB PAIN, ATENOL HELD FOR LOW BP AND HR, NOW SR AND SBP 120'S, REPORT GIVEN TO NEXT SHIFT TO CON'T PPOC.
--- NOTE | 2021-02-10 09:12 | NUR ---
WOUND CONSULT; THE PATIENT IS WELL KNOWN TO ME. COCCYX WOUND WAS IDENTIFIED 0.3 X 0.3 X 0.1. THE SAME WOUND FROM A RECENT HOSPITALIZATION. THE PATIENT IS OF SOUND MIND AND A GOOD HISTORIAN. THE PATIENT KEEPS RE-INJURING BY MOVING HIMSELF UP IN BED WHICH CAUSES FRICTION SHEARING. THE WOUND HAS NO S/S OF INFECTION TODAY. ENCOURAGED THE PATIENT TO CALL STAFF TO PULL HIM UP. RECOMMENDATIONS; -ADD A LOW AIR LOSS BED PUMP. -USE PILLOWS TO OFFLOAD. -APPLY XEROFORM GAUZE, COVERED WITH A BORDER FOAM, M/W/F PRN
--- NOTE | 2021-02-10 21:32 | NUR ---
PT WAS FOUND DOWN BY THE SINK HEADING OUT THE DOOR WAY BY THE QUEEN'S COUNSEL ON THE UNIT. SAFETY GAIT BELT PLACED ON PT. AND PLACED IN WHEEL CHAIR WITH SAFETY GAIT BELT AND PLACED OUT AT THE DESK. THEN THE ROOM WAS CLEANED IN ROOM 204 AND PLACED IN CLOSER TO DESK FOR SAFETY. BED ALARM ON..PT HAS YELLOW SLIPPERS ON AND FALL BRACELT ON. NOTIED DR. MCIHEL NO NEW ORDERS . NOTIFED FAMILY OF THE INCIDENT PER NURSING.
[2021-02-11 03:18] VITALS: BP 127/49
--- NOTE | 2021-02-11 03:26 | NUR ---
PT IS ANXIOUS AGITATED EVEN AFTER MOVING CLOSER TO DESK FOR OBSERVATION . NOTIFIED DR. MICHEL OF PT'S STATUS AND USING AN AID FOR SITTER AT THIS TIME DUE TO SITING OFF THE BED ALARM ON PT. MEDS GIVEN AT THIS TIME DUE TO ANXIOUS. NOW HE IS CALM AND SLEEPING AFTER MEDS. LUNGS CLEAR TO DIMINISHED ON 4 LITERS OXYGEN BUT LIKES TO TAKE IT OFF. TRIES TO GET OUT OF BED MULTIPLE ATTEMPTS WITH BED ALARM ON PT. ONGOING NURISNG CARE AND ASSESSMENT PER NURSING. CALL LIGHT WITHIN REACH.
[2021-02-11 07:48] VITALS: BP 95/59
[2021-02-11 15:46] VITALS: BP 104/57
--- NOTE | 2021-02-11 18:28 | NUR ---
THIS MORNING UPON ASSESSMENT PATIENT WAS LETHARGIC, AROUSABLE TO VOICE, ORIENTED TO ONLY PERSON. HE DID NOT KNOW WHERE HE WAS AND THOUGHT THE YEAR WAS 1959, HE WAS AGGITATED. DR. MICHEL UPDATED AND SAW PATEINT. PATIENT BECAME MORE AWAKE AROUND NOON. HE WAS ORIENTED X4 THROUGHOUT THE REST OF THE SHIFT. SLEPT MOST OF THE DAY. NO OTHER ACCUTE EVENTS.
[2021-02-11 19:58] VITALS: BP 77/47
[2021-02-12] VITALS (30 sets, daily range): BP systolic 74–142; BP diastolic 44–100
--- NOTE | 2021-02-12 03:32 | NUR ---
PT IS ALERT AND OREINTED X4. LUNGS ARE COARSE. ON 4 LITERS NASAL CANULA AT THIS TIME. SLEEPING DURING THE NIGHT PAIN MEDS GIVEN COMPLAINS OF GENERAL PAIN TO RIB PAIN HE REPORTS. ABDOMEN IS SOFT AND FLAT. FAILURE TO THRIVE PT SKINNY NO EDEMA NOTED. FALL LIGHT ON THE BED SOCKS ON AND BRACLET ON FOR SAFETY MEASURE OF CARE
[2021-02-12] MEDS ORDERED: CEFDINIR300 MG PO (08:04)
[2021-02-12] MEDS ORDERED: IPRAT-ALBUT 0.5-3 ML INH (08:05)
[2021-02-12] MEDS ORDERED: ALBUTEROL2.5 MG/0.5 INH (08:05)
[2021-02-12] MEDS ORDERED: PULMICORT0.5 MG/21 INH (08:06)
[2021-02-12] MEDS ORDERED: PREDNISONE 20 M20 M1 PO (08:06)
--- NOTE | 2021-02-12 08:24 | NUR ---
UPON ASSESSMENT THIS MORING O2 SATS READING 74% ON 4L, GOOD PLEATH READING. O2 INCREASED TO 7L, RT NOTIFFIED. PATIENT NOT IN DISTRESS, SHALLOW BREATHING PER USUAL, WEAK CONGESTED COUGH. RT PLACED 15L NRB, SATS 88-90%. DR. MICHEL ON UNIT, EVALUATED PATIENT AT BEDSIDE. STAT XRAY ORDERED. DR. VERMA NOTIFIED. NEW ORDERS TO PLACE PATIENT ON BIPAP, TRANSFER TO ICU, OBTAIN ABG. PATIENT MADE TO BE NPO PER NURSE DESCRETION.
[2021-02-12 09:27] LABS: BE(vivo) 8.5 mmol/L (-2 to +3); PO2 58.3 mmHg (80.0-100.0); pH 7.521 (7.360-7.450); sO2 92.8 % (92.0-98.0)
--- NOTE | 2021-02-12 11:50 | NUR ---
PATIENT DID NOT TOLERATE BIPAP FOR MORE THAN AN HOUR, DUE TO DISCOMFORT, HIM PULLING OFF MASK. A/O X4 AT THE TIME. TRANSITIONED TO NRB PER RT. ATIVAN GIVEN ONCE TO DECREASE RESTLESSNESS AND AGITATION. PATIENT SOON AFTER BECAME CONFUSED, DELIRIOUS, ORIENTED TO PERSON ONLY. HE PULLED OFF CONDOM CATHETER ONCE, 02 SAT PROBE TWICE AND OXYGEN MULTIPLE TIMES, ATTEMPTING TO GET OUT OF BED. THIS RN TO STAY AT BEDSIDE AT THIS TIME. PATIENT MORE CALM WITH STAFF AT BEDSIDE AND IS SOMEWHAT REDIRECTABLE. BULLET ASSEMBLY PRESS OPERATOR STILL AWAITING BED AVAILABILITY IN ICU FOR TRANSFER.
--- NOTE | 2021-02-12 14:21 | NUR ---
REPORT GIVEN TO TALHA BILL IN ICU WHO WILL TAKE OVER PATIENT CARE. PATIENT TRANSFERRED TO ROOM 246. I PHONED PATIENT'S MOTHER AND UPDATED ON PATIENT STATUS AND CHANGE TO ICU ROOM. ALL QUESTIONS AND CONCERNS ADDRESSED.
--- NOTE | 2021-02-12 14:34 | NUR ---
Pt transfer to ICU due to decline in his respiratory status. He needs a bronch but is too weak. Pt's mother is aware and pt is now a DNR. She is open to hospice at home if he is not able to improve. SNF referral process on hold d/t change in his condition. Will reassess early next week.
--- NOTE | 2021-02-12 15:32 | NUR ---
VAT CONSULTED FOR PICC LINE. BOTH ARMS BRACHIALS ATTEMPTED, ONLY VESSELS VISIBLE, PT IS EMACIATED. UNABLE TO PASS GUIDEWIRE PAST EITHER SHOULDER. SO RIJ WIDELY PATENT WITH USG. 6FR 25CM POWER JACC INSERTED TO 9CM EXTERNAL. STAT CXR ORDERED. PT TOLERATED WELL.
--- NOTE | 2021-02-12 15:59 | NUR ---
CXR CONFIRMED RIJ AT [facility], RELEASED FOR IMMEDIATE USE PER PROTOCOL TO LANDY PALENCIA
--- NOTE | 2021-02-12 16:38 | NUR ---
Patient transferred to ICU room 246 from CCU, Dr. Abdi at bedside orders for restraints, precedex, and central line recieved. Patient looked up to monitor and assessed, no skin breakdown, red coccyx, and fragile skin. Patient states he is in no pain but is restless.
--- NOTE | 2021-02-12 18:23 | NUR ---
Patient is not progressing towards goal. Patient transferred from CCU to ICU. On levophed and precedex, anxious at this time. Mother Janelle updated on condition, all questions and concerns were addressed.
[2021-02-13] VITALS (79 sets, daily range): BP systolic 87–134; BP diastolic 45–70
[2021-02-13 01:30] LABS: CALCIUM 7.6 mg/dL (8.5-10.1); CREATININE 0.4 mg/dL (0.7-1.3); POTASSIUM 3.4 mmol/L (3.5-5.1)
--- NOTE | 2021-02-13 02:16 | NUR ---
ASSUMED PT CARE AT 1900, PT IS AWAKE, ORIENTED TO SELF AND SOMETIMES PLACE; SR ON TELE, DENIES PAIN, PT O2 TITRATED TO 4L NC, O2 SATS>95, REMAINS ON LEVOPHED AND PRECEDEX, PT MAITAINING MAP>70, REMAINS AFEBRILE, GRAY INSERTED WITH CLEAR YELLOW URINE, DRAINING WELL, PT IS LAYING IN BED, RESTLESS AT TIMES BUT EASILY REDIRECTIBLE, WILL CONTINUE TO MONITOR AND FOLLOW POC
[2021-02-13 05:32] LABS: HEMATOCRIT 32.3 % (42.0-52.0); HEMOGLOBIN 10.7 gm/dL (14.0-18.0); MCH 30.1 pg (26.0-34.0); MCHC 33.2 g/dL (28.0-37.0); MCV 90.7 fL (80.0-100.0); RBC 3.56 mil/uL (4.50-6.00); WBC 23.3 thou/uL (4.0-11.0)
[2021-02-14] VITALS (77 sets, daily range): BP systolic 75–136; BP diastolic 41–69
--- NOTE | 2021-02-14 00:31 | NUR ---
ASSUMED CARE OF PATIENT AT 1900. ENCOURAGED PATIENT TO EAT MUCH ABLE, DID EAT ICE CREAM. PAIN CONTROLLED BY ORAL PAIN MEDS AT THIS TIME. PATIENT REMAINS JACOBO, IN BED, ALL FALL PRECAUTIONS IN PLACE. ON ROOM AIR, NO DISTRESS NOTED.
[2021-02-14 04:47] LABS: ABSOLUTE NEUTROPHILS 17.3 thou/uL (1.4-8.2); BASOPHILS 0.2 % (0.0-2.0); HEMATOCRIT 29.1 % (42.0-52.0); HEMOGLOBIN 9.5 gm/dL (14.0-18.0); MCH 29.5 pg (26.0-34.0); MCHC 32.7 g/dL (28.0-37.0); MCV 90.1 fL (80.0-100.0); MONOCYTES 1.3 % (1.0-8.0); PLATELET COUNT 259 thou/uL (150-400); POLYS 97.5 % (36.0-66.0); RBC 3.23 mil/uL (4.50-6.00); RDW 15.2 % (10.5-14.5); WBC 17.8 thou/uL (4.0-11.0)
[2021-02-14 04:50] LABS: ALBUMIN 1.6 g/dL (3.4-5.0); CALCIUM 7.6 mg/dL (8.5-10.1); CREATININE 0.5 mg/dL (0.7-1.3); MAGNESIUM 1.7 mg/dL (1.8-2.4); PHOSPHORUS 2.2 mg/dL (2.5-4.9); POTASSIUM 3.6 mmol/L (3.5-5.1); TOTAL BILIRUBIN 0.2 mg/dL (0.2-1.0); TOTAL PROTEIN 5.4 g/dL (6.4-8.2)
--- NOTE | 2021-02-14 10:54 | 2DMMODE ---
[facility] [place] [address] 2 D/M-MODE ECHOCARDIOGRAM Name: THU HAWKINS Room #: 246-P ADM IN M.R.#: [id number] Admission: 02/07/21 Attend Phys: Tai Martin MD Discharge: Date of : 60 Report #: [id number] THIS REPORT FOR: cc: Tai Martin MD, Neal A. MD Lammoglia, Francisco J. MD ~ APPROVED REPORT Study performed: 02/13/2021 07:48:54 EXAM: Limited 2D, Doppler, and color-flow Echocardiogram Patient Location: ICU Room #: 246 Status: on-call BSA: 1.57 HR: 83 bpm BP: 105/57 mmHg Rhythm: NSR Other Information Study Quality: Subcostal views only Technically limited study due to thin body habitus, COPD. Indications Hypoxia. Hx: COPD, Lung cancer, DM. Aortic Valve AoV Peak Rakesh.: 1.25 m/s AO Peak Gr.: 6.25 mmHg Mitral Valve E/A Ratio: 0.8 MV Decel. Time: 108.37 ms MV E Max Rakesh.: 0.57 m/s MV A Rakesh.: 0.73 m/s MV PHT: 31.43 ms Pulmonary Valve PV Peak Rakesh.: 1.07 m/s PV Peak Gr.: 4.54 mmHg Tricuspid Valve TR Peak Rakesh.: 2.34 m/s RAP Estimate: 5.00 mmHg TR Peak Gr.: 22.00 mmHg [facility] [address] [place] [address] 2 D/M-MODE ECHOCARDIOGRAM Name: THU HAWKINS Room #: 246-P ADM IN M.R.#: [id number] Admission: 02/07/21 Attend Phys: Tai Martin, Discharge: Date of : 60 Report #: [id number] PA Pressure: 27.00 mmHg Left Ventricle The left ventricle is normal size. Question inferior wall hypokinesis. There is normal left ventricular wall thickness. Left ventricular systolic function is normal. LVEF is 55%. Mild diastolic dysfunction is present (impaired relaxation pattern). Right Ventricle RV appears mildly hypokinetic. The right ventricle is normal size. Atria The left atrium size is normal. The right atrium size is normal. Aortic Valve The aortic valve is not well visualized. Mild aortic regurgitation. There is no aortic valvular stenosis. Mitral Valve The mitral valve is normal in structure. There is no mitral valve regurgitation noted. No evidence of mitral valve stenosis. Tricuspid Valve The tricuspid valve is normal in structure. Mild tricuspid regurgitation. Estimated PAP is 27mmHg. Pulmonic Valve The pulmonary valve is normal in structure. Trace pulmonic regurgitation. Great Vessels Aortic root is not well visualized. IVC is normal in size and collapses >50% with inspiration. Pericardium There is no pericardial effusion. <Conclusion> The left ventricle is normal size. There is normal left ventricular wall thickness. Question inferior wall hypokinesis. LVEF is 55%. RV appears mildly hypokinetic. The right ventricle is normal size. [facility] [address] [place] [address] 2 D/M-MODE ECHOCARDIOGRAM Name: ROSSTHUFLOR GUAMAN Room #: 246-P ADM IN M.R.#: [id number] Admission: 02/07/21 Attend Phys: Tai Martin, Discharge: Date of : 60 Report #: [id number] The left atrium size is normal. The right atrium size is normal. The aortic valve is not well visualized. Mild aortic regurgitation. The mitral valve is normal in structure. The tricuspid valve is normal in structure. Mild tricuspid regurgitation. Estimated PAP is 27mmHg. The pulmonary valve is normal in structure. Trace pulmonic regurgitation. Aortic root is not well visualized. There is no pericardial effusion. <ELECTRONICALLY SIGNED> By: Franklin Gay MD 02/14/21 1054 1054 [id number] Franklin Gay MD /INF
--- NOTE | 2021-02-14 16:03 | NUR ---
Spoke with Dr. Abdi informed him that patients becomes tachycardic with any type of activity and blood pressure decrease with the tachycardia. Patient was off levophed at 0800 but had to be restarted at 1120 due to MAPs below 60.
[2021-02-15] VITALS (77 sets, daily range): BP systolic 79–154; BP diastolic 42–75
--- NOTE | 2021-02-15 06:00 | NUR ---
PT AWAKE AND ALERT VSS REMAINS ON LEVOPHED GTT AT 3 MCG AND PRECEDEX AT 0.6 MCG. BATHED EARLIER. FENTANYL AND OXYCODONE PRN PAIN REMAINS A DNR DNI LOOSE COUGH LUNGS CLEAR 800 CC UO THIS SHIFT. NO STOOLS JUST FLATUS TONIGHT NOT PROGRESSING TOWARD GOALS. PT TURNS HIMSELF. WILL CONT TO MONITOR
[2021-02-15 06:12] LABS: HEMATOCRIT 30.5 % (42.0-52.0); HEMOGLOBIN 9.9 gm/dL (14.0-18.0); MCH 29.2 pg (26.0-34.0); MCHC 32.4 g/dL (28.0-37.0); MCV 90.3 fL (80.0-100.0); RBC 3.38 mil/uL (4.50-6.00); RDW 15.4 % (10.5-14.5); WBC 31.1 thou/uL (4.0-11.0)
[2021-02-15 06:39] LABS: CALCIUM 7.8 mg/dL (8.5-10.1); CREATININE 0.3 mg/dL (0.7-1.3); MAGNESIUM 1.8 mg/dL (1.8-2.4); PHOSPHORUS 2.4 mg/dL (2.5-4.9); POTASSIUM 3.3 mmol/L (3.5-5.1)
--- NOTE | 2021-02-15 07:16 | NUR ---
PATIENT TRANSFERRED TO ICU DUE TO A CHANGE IN RESPIRATORY STATUS. WILL NEED NEW ORDERS ONCE MEDICALLY APPROPRIATE.
--- NOTE | 2021-02-15 07:55 | NUR ---
Pt TRANSFERRED TO ICU. WILL PLACE ON HOLD AND AWAIT NEW ORDERS TO RESUME WHEN APPROPRIATE
--- NOTE | 2021-02-15 14:25 | NUR ---
WOUND CARE F/U; THE PATIENTS WOUND IS UNCHANGED, AND STABLE. THE PATIENT HAS HAD THIS WOUND FOR A FEW YEARS. NO S/S OF INFECTION. THE WOUND WAS ASSESSED AND REAPPLIED. RECOMMENDATION; CONTIUE THE CURRENT POC. DISCUSSED WITH TALHA
--- NOTE | 2021-02-15 18:13 | NUR ---
PATIENT PROGRESSING TOWARDS THE PLAN OF CARE EVIDENCED BY PT NO LONGER NEEDING PRECEDEX AND LEVOPHED.
[2021-02-16] VITALS (20 sets, daily range): BP systolic 90–136; BP diastolic 47–74
[2021-02-16 05:45] LABS: HEMATOCRIT 30.4 % (42.0-52.0); MCV 90.7 fL (80.0-100.0); RBC 3.35 mil/uL (4.50-6.00); RDW 15.4 % (10.5-14.5)
[2021-02-16 05:54] LABS: WBC 14.7 thou/uL (4.0-11.0)
--- NOTE | 2021-02-16 06:00 | NUR ---
A VERY DELIGHTFUL GENTLEMAN. AWAKE AND ALERT. 2 LITERS NC O2 SAT 97 % LUNGS ESS CLEAR VOIDED 3500 CC CLEAR MARILYN URINE THIS SHIFT. FENTANYL AND OXYCODONE GIVEN FOR PAIN. NO STOOLS ONLY FLATUS TONIGHT. VERY EMACIATED REMAINS A DNR AND DNI . DR MICHEL LEFT ORDERS TO TX TO MED SURG ROOM TODAY
[2021-02-16 06:03] LABS: CALCIUM 7.6 mg/dL (8.5-10.1); CREATININE 0.4 mg/dL (0.7-1.3); POTASSIUM 3.9 mmol/L (3.5-5.1)
--- NOTE | 2021-02-16 11:10 | NUR ---
Discussed during unit rounds, possible able to transfer out of icu when bed is avaible. therapy has been ordered and 5n consult. Will cont following as needed for dc needs.
--- NOTE | 2021-02-16 16:38 | NUR ---
RN SPOKE WITH 4S RN AND GAVE THEM REPORT ON PATIENT. RN COLLECTED ALL OF PATIENT BELONGING. PATIENT IS BEING TRANSPORTED VIA WHEELCHAIR TO UNIT WITH ALL BELONGINGS. RT IS FINISHING BREATHING TREATMENT THEN HEADED TO THE UNIT.
--- NOTE | 2021-02-16 19:43 | NUR ---
Pt transferred to unit from ICu approx 1730. Pt came up with food tray from ICU. Blood sugar 45. Appropriate intervention applied. Blood sugar still low. Pt given carbs and apple juice. Report given to noc RN. Noc RN will rechck blood sugar level.
[2021-02-17 00:40] VITALS: BP 115/70
--- NOTE | 2021-02-17 05:16 | NUR ---
ASSUMED PT CARE AT 1900.PT OBSERVED LYING ON HIS BED WATCHING TV AT SHIFT CHANGE.PT'S BG LOW AT SHIFT CHANGE,MEDS GIVEN,BG UP.AT APPROX 2335,THIS NURSE WAS IN A PT'S ROOM DOING AN ADMISSION WHEN SHE HEARD THE BED ALARM.ON GETTING TO THE PT'S ROOM PT WAS FOUND ON THE FLOOR BY HIS BEDSIDE.PT STATED THAT HE WAS GETTING UP TO STOP THE PEOPLE COMING INTO HIS ROOM FROM THE WINDOW.PT WAS ALERT /CONFUSED AND FORGETFUL AT THE TIME OF FALL.VSS.N\PT ASSESSED AFTER THE FALL,NO INJURY NOTED.PT DENIED HITTING HIS HEAD.PHYSICIAN AND FAMILY NOTIFIED OF PT'S FALL.ORDER NOTED TO START D5 IVF.PT EDUCATED TO USE THE CALL LIGHT FOR ASSISTANCE.PT USING URINAL INDEPENDENTLY IN HIS ROOM,FREQUENCY NOTED.PAIN MED GIVEN PER PT'S REQUEST.POST FALL ASSESSMENT COMPLETED,CARE PLAN UPDATED.FALL PRECAUTIONS IN PLACE,CALL LIGHT WITHIN REACH.
[2021-02-17 07:00] VITALS: BP 132/78
[2021-02-17 11:16] LABS: URINE BILIRUBIN NEGATIVE (Negative); URINE BLOOD NEGATIVE (Negative); URINE CLARITY CLEAR; URINE COLOR YELLOW; URINE GLUCOSE-RANDOM* NEGATIVE (Negative); URINE KETONES NEGATIVE (Negative); URINE LEUKOCYTES NEGATIVE (Negative); URINE NITRITE NEGATIVE (Negative); URINE PROTEIN (DIPSTICK) NEGATIVE (Negative); URINE UROBILINOGEN 0.2 E.U./dl (0.2-1.0)
--- NOTE | 2021-02-17 13:38 | NUR ---
ASSUMED PT CARE THIS AM. PT IS AWAKE AND CONFUSED. PT HAS IV SITE ON IJ TRIPLE LUMEN. GIVEN HALDOL THIS AM PER DR ORDERED. INFORMED DR THAT BG WAS LOW THIS AM. AND GIVEN D50 IV PUSH AND RECHECK BG. DID BLADDER SCAN THIS AM AND IT WAS 600. DID STRAIGHT CATH AND SENT UA AND GIVEN DR. PT IS ON 2L NC O2. PT C/O OF PAIN AND GIVEN PAIN MEDICATION PER PT REQUEST. EDUCATED PT THE IMPORTANCE OF EATING DUE TO POOR APPETITE. PT MOM WAS AT THE BEDSIDE. PT ABLE TO SWALLOW MEDICATION WHOLE. PT USES URINAL AND INCONTINENT AT TIMES. WILL CONTINUE TO MONITOR PT. FOLLOW POC.
--- NOTE | 2021-02-17 15:10 | NUR ---
WOUND CARE F/U; THE COCCYX WOUND LOOKS CLINICALLY BETTER TODAY. THE PATIENT SEEMS A LITTLE CONFUSED TODAY. THERE IS SCANT SEROSANGINOUS DRAINAGE WITH NO S/S OF INFECTION. NO CHANGES NECCESSARY.
[2021-02-17 16:29] VITALS: BP 108/64
--- NOTE | 2021-02-17 16:45 | NUR ---
PT TRANSFERED TO FROM ICU. PT AND OT WERE RE-ORDERED. AWAITING DETERMINATION ON DISCHARE DISPOSITION HOME WITH HH VS SKILLED, VS HOSPICE. CM FOLLOWING REGARDING DC PLANNING.
[2021-02-17 19:49] VITALS: BP 100/49
--- NOTE | 2021-02-18 03:11 | NUR ---
PT A/O X1-3. AT START OF SHIFT PT DID NOT VERBALIZE ANSWERS AND WAS HAVING HALLUCINATIONS REACHING AND GRABBING FOR OBJECTS THAT WERE NOT THERE. PT IS CURRENTLY ABLE A/0X3 AND IS ABLE TO COMMUNICATE NEEDS. C/O PAIN AND REQUESTED PAIN MEDICATION. GIVEN DIRECTED. PT C/O BURNING SENSATION WHILE TRYING TO VOID. WAS INCONTINENT AT THE START OF SHIFT. IS NOW REQUESTING THE URINAL AND CALLING OUT FOR ASSISTANCE TO USE IT. MS NO TELEMETRY. NO BM THIS SHIFT. MOVED PT CLOSER TO NURSES STATION WITH FREQUENT CHECKS. PT CAN BE IMPULSIVE AT TIMES. MAINTANCE FLUID INFUSING AT PRESCRIBED RATE. FALL PRECAUTIONS IMPLEMENTED, CALL LIGHT IS WITHIN REACH.
[2021-02-18 05:02] VITALS: BP 128/78
[2021-02-18 08:55] VITALS: BP 120/69
--- NOTE | 2021-02-18 15:31 | NUR ---
TODAY THIS PT HAS HAD SOME STATED PAIN IN WHICH HE WAS MEDICATED. HE HAS BEEN TOLERATING HIS MEDS AND FLUIDS WELL. HE HAS BEEN BEEN STRAIGHT CATHED TODAY AND UROLOGY HAS BEEN CONSULTED. HE HAS OTHERWISE BEEN IN HIS ROOM WORKING WITH THERAPY AND AWAITING FOR THE NEXT PLAN.
--- NOTE | 2021-02-18 16:03 | NUR ---
CM SPOKE WITH PT'S MOTHER THIS AFTERNOON. SHE INDICATED THAT SHE HAS BEEN AT BEDSIDE A LOT SINCE HIS TRANSFER AND THAT HE WATCHED CARE TEAM ASSIST HIM TODAY AND FEELS LIKE SHE COULD MANAGE PT IN THE HOME SETTING WITH RESUMPTION OF [facility] ONCE MEDICALLY STABLE. SHE STATED THAT SHE WASN'T INTERESTED IN SNF AND THAT IDEALLY PT COULD GO TO 5N. CM TO ASK FOR 5N TO ASSESS THERAPY HAD BEEN REINITIATED. UROLOGY CONSULTED AND SAW PT THIS DAY REGARDING RETENTION AND BLADDER SPASMS. CM FOLLOWING REGARDING DC PLANNING.
[2021-02-18 16:51] LABS: HEMATOCRIT 32.3 % (42.0-52.0); HEMOGLOBIN 10.3 gm/dL (14.0-18.0); MCH 29.1 pg (26.0-34.0); MCV 90.9 fL (80.0-100.0); RBC 3.55 mil/uL (4.50-6.00); RDW 15.7 % (10.5-14.5); WBC 21.9 thou/uL (4.0-11.0)
[2021-02-18 17:13] LABS: CALCIUM 7.8 mg/dL (8.5-10.1); CREATININE 0.4 mg/dL (0.7-1.3)
--- NOTE | 2021-02-18 19:45 | NUR ---
TODAY THIS PT HAS HAD TWO BOUTS WITH LOW BLOOD SUGAR TO WHERE A SUPERINTENDENT OIL FIELD DRILLING WAS CALLED ORDERS WERE GIVEN AND THE PHYSICIAN WAS CONTACTED AND HIS FLUIDS WERE CHANGED TO D10 AT 100 ML AN HR AND HE IS TOLERATING IT WELL. HIS BLADDER SCAN SHOWED 650 ML AND HE IS PENDING A GRAY CATH THIS SHIFT. HE IS OTHERWISE IN HIS BED AWAITING FOR THE NEXT PLAN.
[2021-02-18 19:54] VITALS: BP 107/60
--- NOTE | 2021-02-18 23:31 | NUR ---
ASSUMED PT CARE AT AROUND 1915 HRS. GRAY CATHETER PLACED. PT IS RESTLESS, CONFUSED. PT GIVEN HS MEDS WITH SOME MODERATE DIFFICULTY. WATER AND PUDDING USED. PT ALSO GIVEN MORPHINE IVP PRN. PT STARTED ON NRB @15LPM, KEEPS TAKING IT OFF. BLOOD SUGAR LOW-SEE [facility], DEXTROSE IVP GIVEN.SR ON TELEMETRY.
[2021-02-19 04:31] VITALS: BP 92/66
--- NOTE | 2021-02-19 07:19 | EKG ---
[address] [address] ELECTROCARDIOGRAM REPORT Name: ROSSTHUFLOR GUAMAN Room #: 446- ADM IN M.R.#: [id number] Admission: 02/07/21 Attend Phys: Tai Martin MD Discharge: Date of : 60 Report #: [id number] [facility] Test Date: 2021-02-18 Test Time: 16:45:14 Pat Name: THU HAWKINS Department: Room: 446 Gender: M [employer] Manager: FSCHWALBE : 1960 Requested By: Elvin Cerna Order Number: [id number] MD: Darien Bernal Measurements Intervals [place] Rate: 89 P: [place]: QRS: 61 QRSD: 106 T: 263 QT: 375 QTc: 457 Interpretive Statements NSR Baseline wander in lead(s) V1 Compared to ECG 02/07/2021 06:47:11 Sinus tachycardia no longer present Electronically Signed On 02-19-2021 7:19:26 CDT by Darien Bernal [email or web address] <ELECTRONICALLY SIGNED> By: Darien Bernal MD, [facility] 02/19/21 0719 44 44 Darien Bernal MD, FAC /EPI
[2021-02-19 08:06] VITALS: BP 135/112
[2021-02-19 11:05] VITALS: BP 87/55
--- NOTE | 2021-02-19 11:39 | NUR ---
Discharge planning discussion with pt's mother Janelle this am. The pt is continuing to decline and would not qualify for an intensive rehab program (5N). Pt and family do not want to do a SNF. Pt will need 24hr care at [facility]. [facility] was involved with the pt although his ins was out of network. Hospice referral discussed as the pt has had an info visit from a hospice agency in the past. Pt's mother is receptive and would like an info visit arranged for [facility] for Monday. Pt's brothers are coming in town to see if and they know he is not doing well. Pt is a DNR. Pt having blood sugar issues and continuing to have poor po intake and severe malnutrition along with his repiratory issues. He has continued to get weaker each visit to the hospital and will require 24hr care. Pt has seizure yesterday with low blood sugar. Emotional support provided. Call rec'd from the unit that pt is declining and they will call pt's mother to come back to the hospital as she has just left to run home. Will remain available for support as needed. Hospice referral called and faxed to [facility] but on hold given change in condition.
--- NOTE | 2021-02-19 13:19 | NUR ---
AT THE START OF SHIFT PATIENT WAS A/O X 1 CONFUSED, VERBAL, ABLE TO ANSWER QUESTIONS. HIS MOTHER AT BEDSIDE. BS 53, GLUCOSE GEL GIIVEN. NO PAIN NOTED. ON 6 L VIA NASAL CANNULA. SR ON TELE, GRAY PATENT- MARILYN URINE. LEFT ARM NICOTINE PATCH PLACED. HELD LONG ACTING INSULIN. BS RECHECKED AN HOUR AFTER GETTING GLUCOSE GEL AND IT READ HIGH >500. DR. MICHEL NOTIFIED. 23 UNITS OF HUMOLOG GIVEN. DEXTROSE 10 CHANGED TO NS @ 100, CHEST XRAY ORDERED. PATIENTS VS STARTED DROPPING RIGHT BEFORE LUNCH. BP 87/55, 02 79, HR 125. NURSE TURNED UP O2 TO 10, THEN SWITCHED TO THE NON REBREATHER, NURSE CALLED RT TO HAVE THEM COME AND ASSESS HIM. HE IS A MOUTH BREATHER, O2 THEN WENT UP TO 93% BUT PATIENT WAS TAKING OFF THE MASK. BP THEN WAS 74/55, RT GAVE A BREATHING TREATMENT AND TURNED UP O2 TO 10. 02 CAME UP TO THE 85%. PATIENT THEN BECAME NONVERBAL AND STARRING AT THE CELING, MOVING HIS ARMS AND LEGS, MOANING AND UNABLE TO MAKE EYE CONTACT, VERY PALE SKIN, DR. MICHEL CALLED AND NOTIFIED AND MADE AWARE THAT THE NURSE THINKS THE DYING PROCESS HAS STARTED. HE SAID HE WAS GOING TO COME UP AND SEEING HIM AND JUST TO MAKE HIM COMFORTABLE. NURSE CALLED PATIENTS MOM AND NOTIFIED HER OF PATIENTS VS DROPPING AND THAT HES NOT RESPONDING AND THAT SHE SHOULD BE AT BEDSIDE WITH HIM. MORPHINE GIVEN TO HELP MAKE HIM COMFORTABLE, PATIENT WAS STILL MOVING ARMS AND LEGS OUT OF DISCOMFORT AND DR. MICHEL NOTIFIED AND NURSE REQUESTED ATIVAN AMD HE SAID HE DOESNT DO WELL WITH ATIVAN AND TO GIVE HALDOL. HALDOL GIVEN RIGHT UPPER ARM AND HE STARTED TO SLEEP. MOTHER AT BEDSIDE AND PATIENT IS RESTING AND LOOKS COMFORTABLE.
== END 2021-02-19 17:03 | DRG 193 ==
LOC: ER 06:16 → EROBS 09:51 → ICU 09:51 → 2N 09:51 → ICU 02-12 13:21 → 4S 02-16 16:53
PROVIDERS: Emergency Medicine; Internal Medicine; Internal Medicine Pulmonary Disease; Pediatrics; ADMIT Family Medicine; ATTEND Family Medicine
PROC: 0BJ08ZZ Inspection of Tracheobronchial Tree, Via Natural or Artificial Opening Endoscopic (ICD-10-PCS; principal; 2021-02-09)
PROC: 5A0935A Assistance with Respiratory Ventilation, Less than 24 Consecutive Hours, High Flow/Velocity Cannula (ICD-10-PCS; 2021-02-12)
PROC: 02HV33Z Insertion of Infusion Device into Superior Vena Cava, Percutaneous Approach (ICD-10-PCS; 2021-02-12)
PROC: 5A0935A Assistance with Respiratory Ventilation, Less than 24 Consecutive Hours, High Flow/Velocity Cannula (ICD-10-PCS; 2021-02-18)
DX: J18.9 Pneumonia, unspecified organism (principal); E43 Unspecified severe protein-calorie malnutrition; J96.01 Acute respiratory failure with hypoxia; J98.11 Atelectasis; C34.91 Malignant neoplasm of unspecified part of right bronchus or lung; J94.8 Other specified pleural conditions; T17.590A Other foreign object in bronchus causing asphyxiation, initial encounter; Z68.1 Body mass index [BMI] 19.9 or less, adult; I10 Essential (primary) hypertension; Z20.822 Contact with and (suspected) exposure to COVID-19; F32.9 Major depressive disorder, single episode, unspecified; R62.7 Adult failure to thrive; E87.6 Hypokalemia; E11.649 Type 2 diabetes mellitus with hypoglycemia without coma; X58.XXXA Exposure to other specified factors, initial encounter; R41.0 Disorientation, unspecified; D64.9 Anemia, unspecified; Z66 Do not resuscitate; I95.89 Other hypotension; R33.9 Retention of urine, unspecified; Z85.118 Personal history of other malignant neoplasm of bronchus and lung; Z88.6 Allergy status to analgesic agent; Z87.891 Personal history of nicotine dependence; Y93.89 Activity, other specified; Y92.89 Other specified places as the place of occurrence of the external cause; Y99.8 Other external cause status
CPT/HCPCS: 10078; 10081; 10100; 10195; 50010; 50101; 50607; 50649; 62110; 62900; 70005